=== PATIENT | male | born 1995 | race American Indian/Alaskan Native ===

== ENCOUNTER 2017-08-28 19:38 | Inpatient (IN) | payer SELFPAY ==
[2017-08-28] MEDS ORDERED: D5NS 0.2% 1,000 ML IV SCH (22:00)
[2017-08-28] MEDS ORDERED: TYLENOL ONE (22:01)
[2017-08-28] MEDS ORDERED: TYLENOL PO ONE (22:02)
[2017-08-28 22:48] LABS: Basophils # (Auto) 0.1 K/mm3 (0.0-0.1); Basophils % (Auto) 0.9 % (0.0-1.8); Eosinophils # (Auto) 0.1 K/mm3 (0.0-0.4); Eosinophils % (Auto) 0.6 % (0.0-4.3); Hematocrit 36.1 % (35.5-45.6); Hemoglobin 12.4 gm/dl (11.8-15.2); Lymphocytes # (Auto) 3.2 K/mm3 (1.2-5.4); Mean Corpuscular HGB Conc 34 % (32-34); Mean Corpuscular Hemoglobin 26 pg (28-32); Mean Corpuscular Volume 76 fl (84-94); Monocytes # (Auto) 0.9 K/mm3 (0.0-0.8); Monocytes % (Auto) 8.8 % (0.0-7.3); Red Blood Count 4.73 M/mm3 (3.65-5.03); Red Cell Distribution Width 17.7 % (13.2-15.2)
[2017-08-28 22:53] LABS: Platelet Count 258 K/mm3 (140-440)
[2017-08-28] MEDS ORDERED: TORADOL IV ONE (23:28)
[2017-08-28] MEDS ORDERED: ZOFRAN IV ONE (23:28)
[2017-08-28] MEDS ORDERED: DILAUDID IV ONE (23:28)
--- NOTE | 2017-08-28 23:31 | Emergency Department Report ---
ED Chest Pain HPI - General Chief Complaint: Sickle Cell Crisis Stated Complaint: SICKLE CELL CRISIS Time Seen by Provider: 08/28/17 23:20 Source: patient Mode of arrival: Ambulatory Limitations: No Limitations - History of Present Illness Initial Comments: 22-year-old gentleman presents emergency room with complaints of sickle cell crisis. Patient states he is having bilateral chest pain bilateral lower rib pain and back pain. Patient states this is common site for his sickle cell crisis pain. Patient states the pain is a 10 out of 10. Patient denies fever and chills. Patient denies nausea and vomiting. Patient denies abdominal pain. Patient denies limb pain. Patient states the pain is better with rest. Patient states the pain is worse with movement and walking and taking a deep breath. MD Complaint: chest pain -: Sudden Onset: during rest Pain Location: left chest, right chest Pain Radiation: back Severity: severe Severity scale (0 -10): 10 Quality: sharp Consistency: constant Improves With: rest, remaining still Worsens With: exertion, inspiration, movement Treatments Prior to Arrival: none Aspirin use within the Past 7 Days: (0) No - Related Data On Oral Contraceptives: No Allergies Allergy/AdvReac Type Severity Reaction Status Date / Time amoxicillin [From Augmentin] Allergy Hives Verified 08/28/17 21:55 cefprozil [From Cefzil] Allergy Hives Verified 08/28/17 21:55 clavulanic acid Allergy Hives Verified 08/28/17 21:55 [From Augmentin] promethazine [From Phenergan] Allergy Hives Verified 08/28/17 21:55 Heart Score - HEART Score History: Slightly suspicious EKG: Normal Age: < 45 Risk factors: No known risk factors Troponin: < normal limit HEART Score: 0 ED Review of Systems ROS: Stated complaint: SICKLE CELL CRISIS Other details as noted in HPI Constitutional: denies: chills, fever Eyes: denies: eye pain, eye discharge, vision change ENT: denies: ear pain, throat pain Respiratory: denies: cough, shortness of breath, wheezing Cardiovascular: chest pain. denies: palpitations Endocrine: no symptoms reported Gastrointestinal: denies: abdominal pain, nausea, diarrhea Genitourinary: denies: urgency, dysuria Musculoskeletal: back pain. denies: joint swelling, arthralgia Skin: denies: rash, lesions Neurological: denies: headache, weakness, paresthesias Psychiatric: denies: anxiety, depression Hematological/Lymphatic: denies: easy bleeding, easy bruising ED Past Medical Hx - Past Medical History Previous Medical History?: Yes Hx Sickle Cell Disease: Yes - Surgical History Past Surgical History?: Yes Additional Surgical History: RT Knee, Broncossopy - Family History Family history: no significant - Social History Smoking Status: Never Smoker Substance Use Type: None ED Physical Exam - General Limitations: No Limitations General appearance: alert, in no apparent distress - Head Head exam: Present: atraumatic, normocephalic - Eye Eye exam: Present: normal appearance - ENT ENT exam: Present: mucous membranes dry - Neck Neck exam: Present: normal inspection - Respiratory Respiratory exam: Present: normal lung sounds bilaterally, chest wall tenderness. Absent: respiratory distress - Cardiovascular Cardiovascular Exam: Present: regular rate, normal rhythm. Absent: systolic murmur, diastolic murmur, rubs, gallop - GI/Abdominal GI/Abdominal exam: Present: soft, normal bowel sounds - Rectal Rectal exam: Present: deferred - Extremities Exam Extremities exam: Present: normal inspection - Back Exam Back exam: Present: normal inspection - Neurological Exam Neurological exam: Present: alert, oriented X3 - Psychiatric Psychiatric exam: Present: normal affect, normal mood - Skin Skin exam: Present: warm, dry, intact, normal color. Absent: rash ED Course Vital Signs 08/28/17 08/28/17 08/28/17 21:55 22:04 23:50 Temperature 98.6 F 97.6 F Pulse Rate 69 72 Respiratory 16 16 Rate Blood Pressure 111/59 105/79 Blood Pressure [Right] O2 Sat by Pulse 98 95 Oximetry 08/29/17 08/29/17 03:42 04:23 Temperature 98.3 F 98.3 F Pulse Rate 69 76 Respiratory 20 20 Rate Blood Pressure 107/61 Blood Pressure 107/73 [Right] O2 Sat by Pulse 97 100 Oximetry - Reevaluation(s) Reevaluation #1: Pain has improved, but has required multiple doses of medications and fluid. Will discuss case with hospitalist for admission. Dr. Jang agreed to admit 08/29/17 01:54 ANAND score - Anand Score Age > 65: (0) No Aspirin use within the Past 7 Days: (0) No 3 or more CAD Risk Factors: (0) No 2 or more Angina events in past 24 hrs: (0) No Known CAD with more than 50% Stenosis: (0) No Elevated Cardiac Markers: (0) No ST Deviation Greater than 0.5mm: (0) No ANAND Score: 0 ED Medical Decision Making - Lab Data Result diagrams: 08/28/17 22:07 08/29/17 00:13 - EKG Data -: EKG Interpreted by Me EKG shows normal: sinus rhythm, axis, intervals, QRS complexes, ST-T waves Rate: normal - EKG Data Interpretation: no acute changes, normal EKG - Radiology Data Radiology results: report reviewed - Medical Decision Making Patient is 22-year-old came in with chest pain and rib pain and back pain. And in sickle cell crisis. Will consult Dr. Jang, hospitalist for admission - Differential Diagnosis ssc, cp. Critical care attestation.: If time is entered above; I have spent that time in minutes in the direct care of this critically ill patient, excluding procedure time. ED Disposition Clinical Impression: Chest pain, Sickle cell crisis Disposition: 09 OP ADMIT IP TO THIS HOSP Is pt being admited?: Yes Does the pt Need Aspirin: No Condition: Serious Time of Disposition: 01:58
[2017-08-28] MEDS ORDERED: DILAUDID ONE (23:40)
[2017-08-28] MEDS ORDERED: NACL 0.9% 1000 ML 1,000 ML IV ONE (23:40)
--- NOTE | 2017-08-29 00:32 | XRay Report ---
FINAL REPORT PROCEDURE: XR CHEST 1V AP TECHNIQUE: Chest radiograph anteroposterior view. CPT 62709 HISTORY: cp COMPARISON: No prior studies are available for comparison. FINDINGS: Heart: Normal. Mediastinum/Vessels: Normal. Lungs/Pleural space: Mild infiltrate left lower lung. No effusion or pneumothorax. Bony thorax: No acute osseous abnormality. Life support devices: None. IMPRESSION: Mild left lower lung infiltrate.
[2017-08-29 00:49] LABS: Alanine Aminotransferase 11 units/L (7-56); Albumin 4.2 g/dL (3.9-5); BUN/Creatinine Ratio 15; Blood Urea Nitrogen 9 mg/dL (9-20); Calcium 8.5 mg/dL (8.4-10.2); Hemolysis Index 3
[2017-08-29 00:49] LABS: Bilirubin,Urine NEG (Negative); Blood,Urine NEG (Negative); Color,Urine Yellow (Yellow); Nitrite,Urine NEG (Negative); Protein,Urine <15 mg/dL mg/dL (Negative); RBC,Urine < 1.0 /HPF (0.0-6.0); Sperm,Urine 1+ /HPF (NP); Urobilinogen,Urine < 2.0 mg/dL (<2.0); WBC,Urine < 1.0 /HPF (0.0-6.0)
[2017-08-29 00:54] LABS: Creatine Kinase MB < 1.0 ng/mL (0.0-4.0)
[2017-08-29] MEDS ORDERED: DILAUDID IV ONE ×2 (01:16→07:05)
[2017-08-29] MEDS ORDERED: DILAUDID ONE ×4 (01:17→06:48)
[2017-08-29] MEDS ORDERED: NACL 0.9% 1000 ML 1,000 ML ONE (03:36)
[2017-08-29] MEDS ORDERED: DULCOLAX PR PRN (05:16)
[2017-08-29] MEDS ORDERED: MILK OF MAGNESIA PO PRN (05:16)
[2017-08-29] MEDS ORDERED: ZOFRAN IV PRN (05:16)
[2017-08-29] MEDS ORDERED: DILAUDID IV PRN (05:16)
--- NOTE | 2017-08-29 05:19 | History and Physical Report ---
History of Present Illness Date of examination: 08/29/17 History of present illness: 21-year-old man with a history of sickle cell comes emergency room complaining of bilateral rib pain and back pain which she describes as sharp, constant, intensity 9/10, no radiation, started yesterday. He stated that this is typical of his sickle cell pain. Denies cough, fever, chills, shortness of breath Review Of Systems: Constitutional: no weight loss Ears, eyes, nose, mouth and throat: no nasal congestion, no nasal discharge, no sinus pressure, blurry vision, diplopia Neck: No neck pain or rigidity. Cardiovascular: No palpitations Respiratory: No shortness of breath, cough Gastrointestinal: No abdominal pain, hematochezia Genitourinary : no dysuria, frequency , hematuria Musculoskeletal: no muscle ache Integumentary: no rash, no pruritis Neurological: no parathesias, focal weakness Endocrine: no cold or heat intolerance, no polyuria or polydipsia Hematologic/Lymphatic: no easy bruising, no easy bleeding, no gland swelling Allergic/Immunologic: no urticaria, no angioedema PAST MEDICAL HISTORY: Sickle cell PAST SURGICAL HISTORY: Knee surgery SOCIAL HISTORY: Denies alcohol, tobacco, drugs FAMILY HISTORY: Sickle cell Medications and Allergies Allergies Allergy/AdvReac Type Severity Reaction Status Date / Time amoxicillin [From Augmentin] Allergy Hives Verified 08/28/17 21:55 cefprozil [From Cefzil] Allergy Hives Verified 08/28/17 21:55 clavulanic acid Allergy Hives Verified 08/28/17 21:55 [From Augmentin] promethazine [From Phenergan] Allergy Hives Verified 08/28/17 21:55 Exam - Physical Exam Narrative exam: Gen. appearance: Patient lying in bed, no apparent distress HEENT: Normocephalic, atraumatic, pupils equally round and reactive to light, extraocular movement intact, and no sclericterus,. No JVD or thyromegaly or nodule,neck supple, no carotid bruit ,mucous membranes moist, no exudate or erythema Heart: S1, S2, regular rate and rhythm Lungs: Clear to auscultation bilaterally, breathing comfortable Abdomen: Positive bowel sounds, nontender, nondistended, no organomegaly Extremity: No edema, cyanosis, clubbing Skin: No rash, nodules, warm, dry Neuro: Oriented 3, cranial nerves II-12 intact, speech is fluent, motor and sensory intact - Constitutional Vitals: Temp Pulse Resp BP Pulse Ox 98.3 F 76 20 107/73 100 08/29/17 04:23 08/29/17 04:23 08/29/17 04:23 08/29/17 04:23 08/29/17 04:23 Results - Labs CBC & Chem 7: 08/28/17 22:07 08/29/17 00:13 Labs: Abnormal lab results 08/28/17 08/29/17 Range/Units 22:07 00:13 MCV 76 L (84-94) fl MCH 26 L (28-32) pg RDW 17.7 H (13.2-15.2) % [place] % (Auto) 8.8 H (0.0-7.3) % [place] # 0.9 H (0.0-0.8) K/mm3 Sodium 135 L (137-145) mmol/L Potassium 3.4 L (3.6-5.0) mmol/L Chloride 97.3 L (98-107) mmol/L Creatinine 0.6 L (0.8-1.5) mg/dL Glucose 148 H (75-100) mg/dL - Imaging and Cardiology EKG: image reviewed Chest x-ray: image reviewed Assessment and Plan Assessment Sickle cell crisis Plan Start IV fluids, IV narcotics Check was read as pneumonia however very the patient is asymptomatic Hold antibiotics for now, add lateral view to cxr check d-dimer, dvt prophalaxis
[2017-08-29] MEDS ORDERED: D5/0.45NS 1,000 ML IV SCH (06:00)
--- NOTE | 2017-08-29 06:22 | XRay Report ---
FINAL REPORT PROCEDURE: XR CHEST ROUTINE 2V TECHNIQUE: Chest radiograph anteroposterior view. CPT 89073 HISTORY: possible pna, pt asx COMPARISON: 08/28/2017 FINDINGS: Heart: Normal. Mediastinum/Vessels: Normal. Lungs/Pleural space: Left lower lung infiltrate has not changed. No effusion or pneumothorax. Bony thorax: No acute osseous abnormality. Life support devices: None. IMPRESSION: No significant change in a left lower lung infiltrate..
[2017-08-29] MEDS: OxyCONTIN PO SCH ×3 (06:45→21:37)
[2017-08-29] MEDS ORDERED: K-DUR PO ONE (06:55)
[2017-08-29] MEDS: DILAUDID IV PRN ×7 (09:23→21:36)
[2017-08-29] MEDS: THERAGRAN Tab PO SCH (09:47)
[2017-08-29] MEDS: FOLVITE PO SCH (09:47)
[2017-08-29] MEDS: LOVENOX SUB-Q SCH (09:48)
--- NOTE | 2017-08-29 15:19 | Progress Note ---
Assessment and Plan Assessment and plan: Patient is a 22-year-old man with history of sickle cell disease who presents with hip, back, chest pains as a typical sickle cell pain crisis. pCXR reported as mild left lower infiltrate and repeat CXR 2v reported as no significant change in left lower lung infiltrate. (I don't why cxr was repeated) -Acute sickle cell vaso-occlusive crisis: Treatment with IV fluids, pain control -Left lower lobe infiltrates, question acute chest syndrome vs pneumonia: Consulted hematology/oncology and called Dr. Bravo for stat consult, spoke with J Carlos, answering service. Await call back -LLL pneumonia: use IV Levaquin -Hypokalemia: Replace and recheck in a.m. -Hyponatremia, mild: repeat in am -Hyperglycemia, mild, ?stress induced: check a1c -DVT prophylaxis: sq lovenox CCT 35 minutes History Interval history: Patient was seen and examined. Follow-up on current diagnosis of back pain. Overnight uneventful. Patient denies any shortness breath, nausea/vomiting or severe headaches. Imaging, nursing note, chart, labs and old chart reviewed. Discussed with patient. He denies any coughing. Patient recently moved here and has not established physicians. Hospitalist Physical - Physical exam Narrative exam: GEN: WDWN, NAD, AWAKE, ALERT, ORIENTATED 3 HEENT: NCAT, EOMI, PERRL, OP Clear NECK: supple, no adenopathy, no thyromegaly, no JVD CVS/HEART: RRR, NORMAL S1S2, pulses present bilaterally CHEST/LUNGS: CTA B, Symmetrical chest expansion, good air entry bilaterally GI/Abdomen: soft, NTND, good bowel sounds, no guarding or rebound /Bladder: no suprapubic tenderness, no CVA or paraspinal tenderness EXT/Skin: no c/c/e, no obvious rash MSK: FROM x 4 Neuro: CN 2-12 grossly intact, no new focal deficits Psych: calm - Constitutional Vitals: Temp Pulse Resp BP Pulse Ox 98.1 F 59 L 22 124/81 99 08/29/17 09:47 08/29/17 09:47 08/29/17 09:47 08/29/17 09:47 08/29/17 09:47 Results - Labs CBC & Chem 7: 08/28/17 22:07 08/29/17 00:13 Labs: Laboratory Last Values WBC 9.7 K/mm3 (4.5-11.0) 08/28/17 22:07 RBC 4.73 M/mm3 (3.65-5.03) 08/28/17 22:07 Hgb 12.4 gm/dl (11.8-15.2) 08/28/17 22:07 Hct 36.1 % (35.5-45.6) 08/28/17 22:07 MCV 76 fl (84-94) L 08/28/17 22:07 MCH 26 pg (28-32) L 08/28/17 22:07 MCHC 34 % (32-34) 08/28/17 22:07 RDW 17.7 % (13.2-15.2) H 08/28/17 22:07 Plt Count 258 K/mm3 (140-440) 08/28/17 22:07 Lymph % (Auto) 33.0 % (13.4-35.0) 08/28/17 22:07 [place] % (Auto) 8.8 % (0.0-7.3) H 08/28/17 22:07 Eos % (Auto) 0.6 % (0.0-4.3) 08/28/17 22:07 Baso % (Auto) 0.9 % (0.0-1.8) 08/28/17 22:07 Lymph # 3.2 K/mm3 (1.2-5.4) 08/28/17 22:07 [place] # 0.9 K/mm3 (0.0-0.8) H 08/28/17 22:07 Eos # 0.1 K/mm3 (0.0-0.4) 08/28/17 22:07 Baso # 0.1 K/mm3 (0.0-0.1) 08/28/17 22:07 Seg Neutrophils % 56.7 % (40.0-70.0) 08/28/17 22:07 Seg Neutrophils # 5.5 K/mm3 (1.8-7.7) 08/28/17 22:07 Percent Retic 2.39 % (0.78-2.58) 08/29/17 00:13 D-Dimer 255.90 ng/mlDDU (0-234) H 08/29/17 05:29 Sodium 135 mmol/L (137-145) L 08/29/17 00:13 Potassium 3.4 mmol/L (3.6-5.0) L 08/29/17 00:13 Chloride 97.3 mmol/L (98-107) L 08/29/17 00:13 Carbon Dioxide 25 mmol/L (22-30) 08/29/17 00:13 Anion Gap 16 mmol/L 08/29/17 00:13 BUN 9 mg/dL (9-20) 08/29/17 00:13 Creatinine 0.6 mg/dL (0.8-1.5) L 08/29/17 00:13 Estimated GFR > 60 ml/min 08/29/17 00:13 BUN/Creatinine Ratio 15 % 08/29/17 00:13 Glucose 148 mg/dL (75-100) H 08/29/17 00:13 Calcium 8.5 mg/dL (8.4-10.2) 08/29/17 00:13 Total Bilirubin 0.80 mg/dL (0.1-1.2) 08/29/17 00:13 AST 15 units/L (5-40) 08/29/17 00:13 ALT 11 units/L (7-56) 08/29/17 00:13 Alkaline Phosphatase 79 units/L (35-129) 08/29/17 00:13 Total Creatine Kinase 66 units/L (55-170) 08/29/17 00:13 CK-MB (CK-2) < 1.0 ng/mL (0.0-4.0) 08/29/17 00:13 CK-MB (CK-2) Rel Index 1.5 (0-4) 08/29/17 00:13 Troponin T < 0.010 ng/mL (0.00-0.029) 08/29/17 00:13 Total Protein 6.6 g/dL (6.3-8.2) 08/29/17 00:13 Albumin 4.2 g/dL (3.9-5) 08/29/17 00:13 Albumin/Globulin Ratio 1.8 % 08/29/17 00:13 Urine Color Yellow (Yellow) 08/28/17 Unknown Urine Turbidity Clear (Clear) 08/28/17 Unknown Urine pH 7.0 (5.0-7.0) 08/28/17 Unknown Ur Specific [place] 1.013 (1.003-1.030) 08/28/17 Unknown Urine Protein <15 mg/dl mg/dL (Negative) 08/28/17 Unknown Urine Glucose (UA) Neg mg/dL (Negative) 08/28/17 Unknown Urine Ketones Neg mg/dL (Negative) 08/28/17 Unknown Urine Blood Neg (Negative) 08/28/17 Unknown Urine Nitrite Neg (Negative) 08/28/17 Unknown Urine Bilirubin Neg (Negative) 08/28/17 Unknown Urine Urobilinogen < 2.0 mg/dL (<2.0) 08/28/17 Unknown Ur Leukocyte Esterase Neg (Negative) 08/28/17 Unknown Urine WBC (Auto) < 1.0 /HPF (0.0-6.0) 08/28/17 Unknown Urine RBC (Auto) < 1.0 /HPF (0.0-6.0) 08/28/17 Unknown Urine Sperm 1+ /HPF (WORKERS' COMPENSATION MAGISTRATE) 08/28/17 Unknown
[2017-08-29] MEDS: LEVAQUIN 750MG/150ML 750 MG/150 ML BAG IV SCH (16:52)
[2017-08-29] MEDS: D5/0.45NS 1,000 ML IV SCH (16:53)
[2017-08-29] MEDS: BENADRYL IV PRN (18:12)
[2017-08-29 19:23] LABS: Bilirubin,Direct < 0.2 mg/dL (0-0.2)
[2017-08-29] MEDS: SENOKOT PO SCH (21:36)
--- NOTE | 2017-08-29 22:05 | Hem/Onc Consultation ---
History of Present Illness - Reason for Consult Consult date: 08/29/17 - History of Present Illness 22 year old gentleman. No records to review. 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 States his body pain is typical during a crisis. No fevers. No stroke like symptoms. Past History Past Medical History: other (HbSC disease) Medications and Allergies Allergies Allergy/AdvReac Type Severity Reaction Status Date / Time amoxicillin [From Augmentin] Allergy Hives Verified 08/28/17 21:55 cefprozil [From Cefzil] Allergy Hives Verified 08/28/17 21:55 clavulanic acid Allergy Hives Verified 08/28/17 21:55 [From Augmentin] promethazine [From Phenergan] Allergy Hives Verified 08/28/17 21:55 Home Medications Medication Instructions Recorded Confirmed Last Taken Type Folic Acid [Folvite] 1 mg PO QDAY 08/29/17 08/29/17 Unknown History Hydroxyurea [Hydrea] 500 mg PO 08/29/17 Unknown History Active Meds: Active Medications Bisacodyl (Dulcolax) 10 mg IN QDAY PRN PRN Reason: Constipation unrelieved by MOM Diphenhydramine HCl (Benadryl) 25 mg IV Q6H PRN PRN Reason: Itching Last Admin: 08/29/17 18:12 Dose: 25 mg Enoxaparin Sodium (Lovenox) 40 mg SUB-Q QDAY [facility] Last Admin: 08/29/17 09:48 Dose: Not Given Folic Acid (Folvite) 1 mg PO QDAY [facility] Last Admin: 08/29/17 09:47 Dose: 1 mg Hydromorphone HCl (Dilaudid) 2 mg IV Q2H PRN PRN Reason: Pain , Severe (7-10) Stop: 08/30/17 09:29 Last Admin: 08/29/17 21:36 Dose: 2 mg Dextrose/Sodium Chloride (D5/0.45ns) 1,000 mls @ 125 mls/hr IV DIRECT GREG Last Admin: 08/29/17 16:53 Dose: 125 mls/hr Levofloxacin/Dextrose (Levaquin 750mg/150ml) 750 mg in 150 mls @ 100 mls/hr IV Q24HR GREG PRN Reason: Protocol Last Admin: 08/29/17 16:52 Dose: 100 mls/hr Magnesium Hydroxide (Milk Of Magnesia) 30 ml PO Q4H PRN PRN Reason: Constipation Multivitamins (Theragran Tab) 1 each PO QDAY [facility] Last Admin: 08/29/17 09:47 Dose: 1 each Ondansetron HCl (Zofran) 4 mg IV Q8H PRN PRN Reason: Nausea And Vomiting Oxycodone HCl (Oxycontin) 20 mg PO Q8HR [facility] Last Admin: 08/29/17 21:37 Dose: 20 mg Senna (Senokot) 17.2 mg PO QHS [facility] Last Admin: 08/29/17 21:36 Dose: 17.2 mg Review of Systems All systems: negative (sickle cell pain) Exam - Constitutional Vitals: Last Vital Signs Temp 98.1 F 08/29/17 15:25 Pulse 70 08/29/17 15:25 Resp 18 08/29/17 21:37 BP 117/76 08/29/17 15:25 Pulse Ox 100 08/29/17 19:51 Pain Intensity (0-10): 9/10 General appearance: well-nourished - EENT Eyes: PERRL ENT: hearing intact Lymph node exam: negative cervical - Neck Neck: supple - Respiratory Respiratory effort: Positive: normal Respiratory: bilateral: CTA - Cardiovascular Rhythm: irregularly irregular Extremities: no ischemia, pulses intact - Gastrointestinal General gastrointestinal: Present: soft Rectal Exam: deferred - Genitourinary Male genitourinary: Present: normal - Integumentary Integumentary: clear, warm - Musculoskeletal Musculoskeletal: strength equal bilaterally - Neurologic Neurologic: CNII-XII intact - Psychiatric Psychiatric: appropriate mood/affect Results - Labs lab Results: Laboratory Results - last 24 hr 08/28/17 08/28/17 08/29/17 22:07 Unknown 00:13 WBC 9.7 RBC 4.73 Hgb 12.4 Hct 36.1 MCV 76 L MCH 26 L MCHC 34 RDW 17.7 H Plt Count 258 Lymph % (Auto) 33.0 [place] % (Auto) 8.8 H Eos % (Auto) 0.6 Baso % (Auto) 0.9 Lymph # 3.2 [place] # 0.9 H Eos # 0.1 Baso # 0.1 Seg Neutrophils % 56.7 Seg Neutrophils # 5.5 Percent Retic 2.56 2.39 D-Dimer Sodium Potassium Chloride Carbon Dioxide Anion Gap BUN Creatinine Estimated GFR BUN/Creatinine Ratio Glucose Calcium Total Bilirubin Direct Bilirubin Indirect Bilirubin AST ALT Alkaline Phosphatase Lactate Dehydrogenase Total Creatine Kinase CK-MB (CK-2) CK-MB (CK-2) Rel Index Troponin T Total Protein Albumin Albumin/Globulin Ratio Urine Color Yellow Urine Turbidity Clear Urine pH 7.0 Ur Specific [place] 1.013 Urine Protein <15 mg/dl Urine Glucose (UA) Neg Urine Ketones Neg Urine Blood Neg Urine Nitrite Neg Urine Bilirubin Neg Urine Urobilinogen < 2.0 Ur Leukocyte Esterase Neg Urine WBC (Auto) < 1.0 Urine RBC (Auto) < 1.0 Urine Sperm 1+ 08/29/17 08/29/17 08/29/17 00:13 00:13 05:29 WBC RBC Hgb Hct MCV MCH MCHC RDW Plt Count Lymph % (Auto) [place] % (Auto) Eos % (Auto) Baso % (Auto) Lymph # [place] # Eos # Baso # Seg Neutrophils % Seg Neutrophils # Percent Retic D-Dimer 255.90 H Sodium 135 L Potassium 3.4 L Chloride 97.3 L Carbon Dioxide 25 Anion Gap 16 BUN 9 Creatinine 0.6 L Estimated GFR > 60 BUN/Creatinine Ratio 15 Glucose 148 H Calcium 8.5 Total Bilirubin 0.80 Direct Bilirubin Indirect Bilirubin AST 15 ALT 11 Alkaline Phosphatase 79 Lactate Dehydrogenase Total Creatine Kinase 66 CK-MB (CK-2) < 1.0 CK-MB (CK-2) Rel Index 1.5 Troponin T < 0.010 Total Protein 6.6 Albumin 4.2 Albumin/Globulin Ratio 1.8 Urine Color Urine Turbidity Urine pH Ur Specific [place] Urine Protein Urine Glucose (UA) Urine Ketones Urine Blood Urine Nitrite Urine Bilirubin Urine Urobilinogen Ur Leukocyte Esterase Urine WBC (Auto) Urine RBC (Auto) Urine Sperm 08/29/17 18:00 WBC RBC Hgb Hct MCV MCH MCHC RDW Plt Count Lymph % (Auto) [place] % (Auto) Eos % (Auto) Baso % (Auto) Lymph # [place] # Eos # Baso # Seg Neutrophils % Seg Neutrophils # Percent Retic D-Dimer Sodium Potassium Chloride Carbon Dioxide Anion Gap BUN Creatinine Estimated GFR BUN/Creatinine Ratio Glucose Calcium Total Bilirubin 0.90 Direct Bilirubin < 0.2 Indirect Bilirubin 0.7 AST ALT Alkaline Phosphatase Lactate Dehydrogenase 180 Total Creatine Kinase CK-MB (CK-2) CK-MB (CK-2) Rel Index Troponin T Total Protein Albumin Albumin/Globulin Ratio Urine Color Urine Turbidity Urine pH Ur Specific [place] Urine Protein Urine Glucose (UA) Urine Ketones Urine Blood Urine Nitrite Urine Bilirubin Urine Urobilinogen Ur Leukocyte Esterase Urine WBC (Auto) Urine RBC (Auto) Urine Sperm Assessment and Plan - Patient Problems (1) Sickle cell crisis Current Visit: Yes Status: Acute Plan to address problem: He complains of pain. Added and reviewed his hemolysis labs. His Hb is normal, normal bilirubin, normal LDH. Unlikely to be in severe hemolysis. Review daily CBC CMP direct bilirubin, LDH. Pain control. IV fluids and antibiotics. Will order Hb electrophoresis. Needs outpatient follow up. Stressed with him th eimportance of outpatient follow up. He agrees.
[2017-08-30] MEDS: DILAUDID IV PRN ×9 (00:45→23:29)
[2017-08-30] MEDS: D5/0.45NS 1,000 ML IV SCH ×3 (01:16→19:42)
[2017-08-30] MEDS ORDERED: DILAUDID PCA 6MG/30ML IV SCH (02:00)
[2017-08-30] MEDS: OxyCONTIN PO SCH ×3 (05:45→23:06)
[2017-08-30 06:35] LABS: Basophils % (Auto) 0.8 % (0.0-1.8); Eosinophils # (Auto) 0.1 K/mm3 (0.0-0.4); Eosinophils % (Auto) 1.8 % (0.0-4.3); Hematocrit 32.9 % (35.5-45.6); Hemoglobin 11.6 gm/dl (11.8-15.2); Lymphocytes # (Auto) 2.9 K/mm3 (1.2-5.4); Lymphocytes % (Auto) 45.7 % (13.4-35.0); Mean Corpuscular HGB Conc 35 % (32-34); Mean Corpuscular Hemoglobin 27 pg (28-32); Mean Corpuscular Volume 76 fl (84-94); Monocytes # (Auto) 0.7 K/mm3 (0.0-0.8); Monocytes % (Auto) 10.3 % (0.0-7.3); Platelet Count 250 K/mm3 (140-440); Red Blood Count 4.35 M/mm3 (3.65-5.03); Red Cell Distribution Width 17.5 % (13.2-15.2)
[2017-08-30 06:46] LABS: BUN/Creatinine Ratio 9; Blood Urea Nitrogen 6 mg/dL (9-20); Calcium 8.9 mg/dL (8.4-10.2); Hemolysis Index 15
--- NOTE | 2017-08-30 09:21 | Hem/Onc Progress Note ---
Assessment and Plan Continue the current regimen. Awaiting hemoglobin electrophoresis. Lab seem to be stable. Subjective Date of service: 08/30/17 Interval history: He shouldn't states that he continues to be in pain. The regimen works but he got off the regimen last night Objective - Constitutional Vitals: Last Vital Signs Temp 98.4 F 08/30/17 07:27 Pulse 62 08/30/17 07:27 Resp 20 08/30/17 07:27 BP 112/69 08/30/17 07:27 Pulse Ox 100 08/30/17 07:27 Pain Intensity (0-10): 7/10 General appearance: other (in distress with pain) - Neck Neck: supple - Respiratory Respiratory effort: Positive: normal Respiratory: bilateral: CTA - Cardiovascular Rhythm: regular Extremities: No edema - Gastrointestinal General gastrointestinal: Present: soft - Labs Lab Results: Laboratory Results - last 24 hr 08/29/17 08/30/17 08/30/17 18:00 06:14 06:14 WBC 6.4 RBC 4.35 Hgb 11.6 L Hct 32.9 L MCV 76 L MCH 27 L MCHC 35 H RDW 17.5 H Plt Count 250 Lymph % (Auto) 45.7 H [place] % (Auto) 10.3 H Eos % (Auto) 1.8 Baso % (Auto) 0.8 Lymph # 2.9 [place] # 0.7 Eos # 0.1 Baso # 0.0 Seg Neutrophils % 41.4 Seg Neutrophils # 2.6 Percent Retic 2.19 Sodium 141 Potassium 4.0 Chloride 99.6 Carbon Dioxide 27 Anion Gap 18 BUN 6 L Creatinine 0.7 L Estimated GFR > 60 BUN/Creatinine Ratio 9 Glucose 81 Hemoglobin A1c Calcium 8.9 Total Bilirubin 0.90 Direct Bilirubin < 0.2 Indirect Bilirubin 0.7 Lactate Dehydrogenase 180 193 H 08/30/17 06:14 WBC RBC Hgb Hct MCV MCH MCHC RDW Plt Count Lymph % (Auto) [place] % (Auto) Eos % (Auto) Baso % (Auto) Lymph # [place] # Eos # Baso # Seg Neutrophils % Seg Neutrophils # Percent Retic Sodium Potassium Chloride Carbon Dioxide Anion Gap BUN Creatinine Estimated GFR BUN/Creatinine Ratio Glucose Hemoglobin A1c < 4.2 Calcium Total Bilirubin Direct Bilirubin Indirect Bilirubin Lactate Dehydrogenase
[2017-08-30] MEDS ORDERED: DILAUDID IV PRN ×4 (11:29→19:52)
[2017-08-30] MEDS: LEVAQUIN 750MG/150ML 750 MG/150 ML BAG IV SCH (11:56)
[2017-08-30] MEDS: FOLVITE PO SCH (11:57)
[2017-08-30] MEDS: THERAGRAN Tab PO SCH (11:57)
[2017-08-30] MEDS: BENADRYL IV PRN ×2 (12:06→19:47)
[2017-08-30] MEDS: LOVENOX SUB-Q SCH (12:25)
--- NOTE | 2017-08-30 15:02 | Progress Note ---
Assessment and Plan Assessment and plan: Patient is a 22-year-old man with history of sickle cell disease who presents with hip, back, chest pains as a typical sickle cell pain crisis. pCXR reported as mild left lower infiltrate and repeat CXR 2v reported as no significant change in left lower lung infiltrate. (I don't why cxr was repeated) -Acute sickle cell vaso-occlusive crisis: Treatment with IV fluids, pain control -Left lower lobe infiltrates, question acute chest syndrome vs pneumonia: Hematology/oncology is following -LLL pneumonia: use IV Levaquin -Hypokalemia: Replace and recheck in a.m. -Hyponatremia, mild: repeat in am -Hyperglycemia, mild, ?stress induced: check a1c -DVT prophylaxis: sq lovenox restarted iv dilaudid. History Interval history: Patient was seen and examined. Follow-up on current diagnosis of back pain. Overnight uneventful. Patient denies any shortness breath, nausea/vomiting or severe headaches. Imaging, nursing note, chart, labs and old chart reviewed. Discussed with patient. He denies any coughing. Patient recently moved here from [place]. Hospitalist Physical - Physical exam Narrative exam: GEN: WDWN, NAD, AWAKE, ALERT, ORIENTATED 3 HEENT: NCAT, EOMI, PERRL, OP Clear NECK: supple, no adenopathy, no thyromegaly, no JVD CVS/HEART: RRR, NORMAL S1S2, pulses present bilaterally CHEST/LUNGS: CTA B, Symmetrical chest expansion, good air entry bilaterally GI/Abdomen: soft, NTND, good bowel sounds, no guarding or rebound /Bladder: no suprapubic tenderness, no CVA or paraspinal tenderness EXT/Skin: no c/c/e, no obvious rash MSK: FROM x 4 Neuro: CN 2-12 grossly intact, no new focal deficits Psych: calm - Constitutional Vitals: Temp Pulse Resp BP Pulse Ox 98.4 F 62 20 112/69 100 08/30/17 07:27 08/30/17 07:27 08/30/17 07:27 08/30/17 07:27 08/30/17 09:25 Results - Labs CBC & Chem 7: 08/30/17 06:14 08/30/17 06:14 Labs: Laboratory Last Values WBC 6.4 K/mm3 (4.5-11.0) 08/30/17 06:14 RBC 4.35 M/mm3 (3.65-5.03) 08/30/17 06:14 Hgb 11.6 gm/dl (11.8-15.2) L 08/30/17 06:14 Hct 32.9 % (35.5-45.6) L 08/30/17 06:14 MCV 76 fl (84-94) L 08/30/17 06:14 MCH 27 pg (28-32) L 08/30/17 06:14 MCHC 35 % (32-34) H 08/30/17 06:14 RDW 17.5 % (13.2-15.2) H 08/30/17 06:14 Plt Count 250 K/mm3 (140-440) 08/30/17 06:14 Lymph % (Auto) 45.7 % (13.4-35.0) H 08/30/17 06:14 [place] % (Auto) 10.3 % (0.0-7.3) H 08/30/17 06:14 Eos % (Auto) 1.8 % (0.0-4.3) 08/30/17 06:14 Baso % (Auto) 0.8 % (0.0-1.8) 08/30/17 06:14 Lymph # 2.9 K/mm3 (1.2-5.4) 08/30/17 06:14 [place] # 0.7 K/mm3 (0.0-0.8) 08/30/17 06:14 Eos # 0.1 K/mm3 (0.0-0.4) 08/30/17 06:14 Baso # 0.0 K/mm3 (0.0-0.1) 08/30/17 06:14 Seg Neutrophils % 41.4 % (40.0-70.0) 08/30/17 06:14 Seg Neutrophils # 2.6 K/mm3 (1.8-7.7) 08/30/17 06:14 Percent Retic 2.19 % (0.78-2.58) 08/30/17 06:14 D-Dimer 255.90 ng/mlDDU (0-234) H 08/29/17 05:29 Sodium 141 mmol/L (137-145) 08/30/17 06:14 Potassium 4.0 mmol/L (3.6-5.0) 08/30/17 06:14 Chloride 99.6 mmol/L (98-107) 08/30/17 06:14 Carbon Dioxide 27 mmol/L (22-30) 08/30/17 06:14 Anion Gap 18 mmol/L 08/30/17 06:14 BUN 6 mg/dL (9-20) L 08/30/17 06:14 Creatinine 0.7 mg/dL (0.8-1.5) L 08/30/17 06:14 Estimated GFR > 60 ml/min 08/30/17 06:14 BUN/Creatinine Ratio 9 % 08/30/17 06:14 Glucose 81 mg/dL (75-100) 08/30/17 06:14 Hemoglobin A1c < 4.2 % (4-6) 08/30/17 06:14 Calcium 8.9 mg/dL (8.4-10.2) 08/30/17 06:14 Total Bilirubin 0.90 mg/dL (0.1-1.2) 08/29/17 18:00 Direct Bilirubin < 0.2 mg/dL (0-0.2) 08/29/17 18:00 Indirect Bilirubin 0.7 mg/dL 08/29/17 18:00 AST 15 units/L (5-40) 08/29/17 00:13 ALT 11 units/L (7-56) 08/29/17 00:13 Alkaline Phosphatase 79 units/L (35-129) 08/29/17 00:13 Lactate Dehydrogenase 193 units/L (91-180) H 08/30/17 06:14 Total Creatine Kinase 66 units/L (55-170) 08/29/17 00:13 CK-MB (CK-2) < 1.0 ng/mL (0.0-4.0) 08/29/17 00:13 CK-MB (CK-2) Rel Index 1.5 (0-4) 08/29/17 00:13 Troponin T < 0.010 ng/mL (0.00-0.029) 08/29/17 00:13 Total Protein 6.6 g/dL (6.3-8.2) 08/29/17 00:13 Albumin 4.2 g/dL (3.9-5) 08/29/17 00:13 Albumin/Globulin Ratio 1.8 % 08/29/17 00:13 Urine Color Yellow (Yellow) 08/28/17 Unknown Urine Turbidity Clear (Clear) 08/28/17 Unknown Urine pH 7.0 (5.0-7.0) 08/28/17 Unknown Ur Specific [place] 1.013 (1.003-1.030) 08/28/17 Unknown Urine Protein <15 mg/dl mg/dL (Negative) 08/28/17 Unknown Urine Glucose (UA) Neg mg/dL (Negative) 08/28/17 Unknown Urine Ketones Neg mg/dL (Negative) 08/28/17 Unknown Urine Blood Neg (Negative) 08/28/17 Unknown Urine Nitrite Neg (Negative) 08/28/17 Unknown Urine Bilirubin Neg (Negative) 08/28/17 Unknown Urine Urobilinogen < 2.0 mg/dL (<2.0) 08/28/17 Unknown Ur Leukocyte Esterase Neg (Negative) 08/28/17 Unknown Urine WBC (Auto) < 1.0 /HPF (0.0-6.0) 08/28/17 Unknown Urine RBC (Auto) < 1.0 /HPF (0.0-6.0) 08/28/17 Unknown Urine Sperm 1+ /HPF (WILL CALL ORDER CLERK) 08/28/17 Unknown
[2017-08-30] MEDS: HYDREA PO SCH (18:54)
[2017-08-30] MEDS ORDERED: DILAUDID IM PRN (19:39)
[2017-08-30] MEDS ORDERED: DILAUDID IV ONE (21:00)
[2017-08-30] MEDS: SENOKOT PO SCH (22:35)
[2017-08-31] MEDS: BENADRYL IV PRN ×2 (02:04→07:10)
[2017-08-31] MEDS: DILAUDID IV PRN ×4 (02:05→11:13)
[2017-08-31] MEDS: OxyCONTIN PO SCH (05:08)
[2017-08-31] MEDS: D5/0.45NS 1,000 ML IV SCH (07:02)
[2017-08-31 07:49] VITALS: BP 107/57
[2017-08-31] MEDS ORDERED: LEVAQUIN PO SCH (10:00)
[2017-08-31] MEDS: LOVENOX SUB-Q SCH (10:00)
[2017-08-31] MEDS: HYDREA PO SCH (10:00)
[2017-08-31] MEDS: FOLVITE PO SCH (11:00)
[2017-08-31] MEDS: THERAGRAN Tab PO SCH (11:00)
--- NOTE | 2017-08-31 11:25 | Discharge Summary ---
Providers - Providers Date of Admission: 08/29/17 05:16 Date of discharge: 08/31/17 Attending physician: DONNY MORRIS 08/29/17 16:18 Consult to Physician [CONS] Routine Consulting Provider: RHEA HOYT Reason For Exam: Evaluate for acute chest syndrome, Place consult to:: DR. HOYT Notified:: OFFICE Phone number called:: [phone] Was contact made?: Yes If yes, spoke with:: RAPHAEL Time called:: 16:55 Comment:: BRYSON NOTIFIED Primary care physician: VIDEO EFFECTS EDITOR Hospitalization Condition: Stable Hospital course: Patient is a 22-year-old man with history of sickle cell disease who presents with hip, back, chest pains as a typical sickle cell pain crisis. pCXR reported as mild left lower infiltrate and repeat CXR 2v reported as no significant change in left lower lung infiltrate. (I don't why cxr was repeated) -Acute sickle cell vaso-occlusive crisis: Treatment with IV fluids, pain control -Left lower lobe infiltrates, question acute chest syndrome vs pneumonia: Hematology/oncology is following -LLL pneumonia: use IV Levaquin -Hypokalemia: Replace and recheck in a.m. -Hyponatremia, mild: repeat in am -Hyperglycemia, mild, ?stress induced: check a1c -DVT prophylaxis: sq lovenox (he is refusing) pt wants to go home. he feels better Disposition: DC-01 TO HOME OR SELFCARE Time spent for discharge: 35 min Core Measure Documentation - Palliative Care Palliative Care/ Comfort Measures: Not Applicable - Core Measures Any of the following diagnoses?: none - VTE Discharge Requirements Deep Vein Thrombosis/Pulmonary Embolism Present on Admission: No Has pt received <5 days of overlap therapy or INR<2.0: No Anticoagulant overlap therapy prescribed at discharge: No Contraindication No Overlap Therapy order at DC: Not Indicated Exam - Physical Exam Narrative exam: GEN: WDWN, NAD, AWAKE, ALERT, ORIENTATED 3 HEENT: NCAT, EOMI, PERRL, OP Clear NECK: supple, no adenopathy, no thyromegaly, no JVD CVS/HEART: RRR, NORMAL S1S2, pulses present bilaterally CHEST/LUNGS: CTA B, Symmetrical chest expansion, good air entry bilaterally GI/Abdomen: soft, NTND, good bowel sounds, no guarding or rebound /Bladder: no suprapubic tenderness, no CVA or paraspinal tenderness EXT/Skin: no c/c/e, no obvious rash MSK: FROM x 4 Neuro: CN 2-12 grossly intact, no new focal deficits Psych: calm - Constitutional Vitals: Temp Pulse Resp BP Pulse Ox 97.8 F 66 18 107/57 100 08/31/17 07:33 08/31/17 07:33 08/31/17 07:33 08/31/17 07:33 08/31/17 07:33 Plan Activity: other (no strenous activity) Diet: regular Follow up with: PRIMARY CAREMD [Primary Care Provider] - 7 Days RHEA HOYT MD [Staff Physician] - 7 Days Prescriptions: Sennosides Tab [Senokot] 17.2 mg PO QHS #30 tablet Folic Acid [Folvite] 1 mg PO QDAY #30 tablet Levofloxacin [Levaquin TAB] 750 mg PO Q24HR #4 tablet oxyCODONE ER [OxyCONTIN ER TAB] 20 mg PO Q8HR #20 tablet
== END 2017-08-31 13:00 | disposition home or self-care (01) | DRG 811 ==
LOC: ED 19:38 → 3A 08-29 05:16
PROVIDERS: ADMIT Internal Medicine; ATTEND Internal Medicine
DX: D57.00 Hb-SS disease with crisis, unspecified (principal); J18.1 Lobar pneumonia, unspecified organism; E87.1 Hypo-osmolality and hyponatremia; Z88.8 Allergy status to other drugs, medicaments and biological substances; Z88.1 Allergy status to other antibiotic agents; E87.6 Hypokalemia; R73.9 Hyperglycemia, unspecified
CPT/HCPCS: 36415; 71045; 71046; 80048; 80053; 81001; 82248; 82550; 82553; 83036; 83615; 84484; 85025; 85027; 85045; 85379; 93005; 93010; 96374; 96375; 96376; J1170; J1200; J1650; J1885; J1956; J2405; J7030

== ENCOUNTER 2017-09-25 16:10 | Inpatient (IN) | payer SELFPAY ==
[2017-09-25] MEDS ORDERED: D5NS 0.2% 1,000 ML IV SCH (18:00)
[2017-09-25] MEDS ORDERED: ZOFRAN IV ONE (18:17)
[2017-09-25] MEDS ORDERED: DILAUDID IV ONE ×3 (18:17→19:54)
[2017-09-25] MEDS ORDERED: NACL 0.9% 1000 ML 1,000 ML IV ONE (18:17)
[2017-09-25] MEDS ORDERED: TORADOL IV ONE (18:18)
--- NOTE | 2017-09-25 18:26 | Emergency Department Report ---
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 He has had gradual onset of generalized chest pain for several days. He denies shortness of breath. Denies cough. Denies fever. He denies pain in the extremities. 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 He is in the [place] area visiting his father. He denies injury. Pain is 10 on 10 in severity. He states that he has not had many hospitalizations for sickle cell crisis. However this was "a bad year". 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 - Related Data Previous Rx's Medication Instructions Recorded Last Taken Type Folic Acid [Folvite] 1 mg PO QDAY #30 tablet 08/31/17 Unknown Rx Levofloxacin [Levaquin TAB] 750 mg PO Q24HR #4 tablet 08/31/17 Unknown Rx Oxycodone HCl [Oxycontin] 30 mg PO BID #20 tab 08/31/17 Unknown Rx Oxycodone HCl [Roxicodone] 30 mg PO BID PRN #20 tablet 08/31/17 Unknown Rx Sennosides Tab [Senokot] 17.2 mg PO QHS #30 tablet 08/31/17 Unknown Rx Allergies Allergy/AdvReac Type Severity Reaction Status Date / Time amoxicillin [From Augmentin] Allergy Hives Verified 08/28/17 21:55 cefprozil [From Cefzil] Allergy Hives Verified 08/28/17 21:55 clavulanic acid Allergy Hives Verified 08/28/17 21:55 [From Augmentin] promethazine [From Phenergan] Allergy Hives Verified 08/28/17 21:55 ED Review of Systems ROS: Stated complaint: SICKLE CELL CRISIS Other details as noted in HPI Comment: All other systems reviewed and negative Constitutional: denies: fever, malaise Respiratory: denies: cough Cardiovascular: chest pain ED Past Medical Hx - Past Medical History Previous Medical History?: Yes Hx Sickle Cell Disease: Yes Additional medical history: Pneumonia - Surgical History Past Surgical History?: Yes Additional Surgical History: RT Knee, Broncossopy - Social History Smoking Status: Never Smoker Substance Use Type: Prescribed - Medications Home Medications: Home Medications Medication Instructions Recorded Confirmed Last Taken Type Folic Acid [Folvite] 1 mg PO QDAY #30 tablet 08/31/17 Unknown Rx Levofloxacin [Levaquin TAB] 750 mg PO Q24HR #4 tablet 08/31/17 Unknown Rx Oxycodone HCl [Oxycontin] 30 mg PO BID #20 tab 08/31/17 Unknown Rx Oxycodone HCl [Roxicodone] 30 mg PO BID PRN #20 tablet 08/31/17 Unknown Rx Sennosides Tab [Senokot] 17.2 mg PO QHS #30 tablet 08/31/17 Unknown Rx ED Physical Exam - General Limitations: No Limitations General appearance: alert, in no apparent distress, other (appears in pain rocking [id number]) - Head Head exam: Present: atraumatic, normocephalic - Eye Eye exam: Present: normal appearance - ENT ENT exam: Present: mucous membranes moist - Neck Neck exam: Present: normal inspection - Respiratory Respiratory exam: Present: normal lung sounds bilaterally. Absent: respiratory distress, wheezes, rales, rhonchi - Cardiovascular Cardiovascular Exam: Present: regular rate, normal rhythm, normal heart sounds. Absent: systolic murmur, diastolic murmur, rubs, gallop - GI/Abdominal GI/Abdominal exam: Present: soft, normal bowel sounds. Absent: distended, tenderness, guarding, rebound - Rectal Rectal exam: Present: deferred - Extremities Exam Extremities exam: Present: normal inspection. Absent: full ROM, tenderness - Back Exam Back exam: Present: normal inspection - Neurological Exam Neurological exam: Present: alert, oriented X3 - Psychiatric Psychiatric exam: Present: normal affect, normal mood - Skin Skin exam: Present: warm, dry, intact, normal color. Absent: rash ED Course Vital Signs 09/25/17 09/25/17 09/25/17 17:50 19:28 19:30 Temperature 98.4 F Pulse Rate 79 Respiratory 18 Rate Blood Pressure 131/68 115/73 O2 Sat by Pulse 100 98 98 Oximetry ED Medical Decision Making - Lab Data Result diagrams: 09/25/17 18:01 09/25/17 19:35 - Medical Decision Making Without significant anemia, patient is experiencing sickle cell crisis. He explains that sickle crisis typically in ribs. No indication of PE or acute chest. Admitted to hospitalist service. Critical care attestation.: If time is entered above; I have spent that time in minutes in the direct care of this critically ill patient, excluding procedure time. ED Disposition Clinical Impression: Sickle cell crisis Disposition: OP ADMIT IP TO THIS HOSP Is pt being admited?: Yes Does the pt Need Aspirin: No Condition: Stable Time of Disposition: 21:40
[2017-09-25 18:38] LABS: Basophils # (Auto) 0.1 K/mm3 (0.0-0.1); Basophils % (Auto) 0.4 % (0.0-1.8); Eosinophils # (Auto) 0.1 K/mm3 (0.0-0.4); Eosinophils % (Auto) 0.4 % (0.0-4.3); Hematocrit 36.8 % (35.5-45.6); Hemoglobin 12.6 gm/dl (11.8-15.2); Lymphocytes # (Auto) 2.2 K/mm3 (1.2-5.4); Lymphocytes % (Auto) 14.9 % (13.4-35.0); Mean Corpuscular HGB Conc 34 % (32-34); Mean Corpuscular Hemoglobin 27 pg (28-32); Mean Corpuscular Volume 78 fl (84-94); Monocytes # (Auto) 0.9 K/mm3 (0.0-0.8); Platelet Count 358 K/mm3 (140-440); Red Cell Distribution Width 19.7 % (13.2-15.2)
--- NOTE | 2017-09-25 18:46 | XRay Report ---
FINAL REPORT EXAM: XR CHEST ROUTINE 2V HISTORY: hx of sickle cell and pneumonia, congested cough TECHNIQUE: PA and lateral views of the chest PRIORS: CXR 08/29/2017 FINDINGS: Lines, tubes, and devices: N/A Lungs and pleura: Trachea is normal in position. There are new mild linear markings in the lingula suspicious for atelectasis versus early infiltrate. Cardiomediastinal silhouette: Cardiac and mediastinal silhouettes are unremarkable. Other: Bony structures are intact. IMPRESSION: New linear markings in the lingula suspicious for atelectasis versus early infiltrate.
[2017-09-25 18:52] LABS: Blood Urea Nitrogen 5 mg/dL (9-20)
[2017-09-25 19:49] LABS: BUN/Creatinine Ratio 8; Blood Urea Nitrogen 5 mg/dL (9-20); Calcium 9.7 mg/dL (8.4-10.2); Hemolysis Index 9
--- NOTE | 2017-09-25 19:50 | Cat Scan Report ---
FINAL REPORT EXAM: CT ANGIO CHEST HISTORY: chest pain sickle cell pneumonia TECHNIQUE: Enhanced CT of the chest at 1.25 mm axial intervals following a pulmonary embolism protocol. Coronal and sagittal imaging were also obtained. Coronal MIP projections were obtained. Contrast: Intravenous contrast given PRIORS: CXR 09/25/2017 FINDINGS: There is no evidence for pulmonary embolism in the main pulmonary artery, right and left pulmonary arteries or their major distributions. However, CT does not exclude distal pulmonary emboli. Linear atelectasis in the lingula is present. Otherwise, the lung parenchyma are expanded and clear with no evidence for parenchymal nodules, infiltrates, congestion, or pleural effusion. There is no evidence for mediastinal, hilar, or axillary adenopathy. Residual thymus is present in the anterior mediastinum. Cardiovascular structures are within normal limits. No evidence for ventricular chamber enlargement is seen. Images through the lung bases include the upper abdomen which show no abnormalities of the visualized abdominal viscera. Bony structures demonstrate no focal abnormalities. No evidence for bone infarct is seen. IMPRESSION: No evidence for pulmonary embolism. Linear atelectasis in the lingula is noted
[2017-09-25] MEDS ORDERED: MORPHINE IV ONE (21:41)
[2017-09-25] MEDS ORDERED: DULCOLAX PR PRN (21:54)
[2017-09-25] MEDS ORDERED: MORPHINE IV PRN (21:54)
[2017-09-25] MEDS ORDERED: REGLAN IV PRN (21:54)
[2017-09-25] MEDS ORDERED: ZOFRAN IV PRN (21:54)
[2017-09-25] MEDS ORDERED: MILK OF MAGNESIA PO PRN (21:54)
[2017-09-25] MEDS ORDERED: BENADRYL PO PRN (21:54)
--- NOTE | 2017-09-25 21:57 | History and Physical Report ---
History of Present Illness Date of examination: 09/25/17 History of present illness: 22-year-old man with a history of sickle cell comes emergency room complaining of bilateral rib pain andchest pain which she describes as sharp, constant, intensity 9/10, no radiation, started yesterday. He stated that this is typical of his sickle cell pain. Denies cough, fever, chills, shortness of breath Review Of Systems: Constitutional: no weight loss Ears, eyes, nose, mouth and throat: no nasal congestion, no nasal discharge, no sinus pressure, blurry vision, diplopia Neck: No neck pain or rigidity. Cardiovascular: No palpitations Respiratory: No shortness of breath, cough Gastrointestinal: No abdominal pain, hematochezia Genitourinary : no dysuria, frequency , hematuria Musculoskeletal: no muscle ache Integumentary: no rash, no pruritis Neurological: no parathesias, focal weakness Endocrine: no cold or heat intolerance, no polyuria or polydipsia Hematologic/Lymphatic: no easy bruising, no easy bleeding, no gland swelling Allergic/Immunologic: no urticaria, no angioedema PAST MEDICAL HISTORY: Sickle cell PAST SURGICAL HISTORY: Knee surgery SOCIAL HISTORY: Denies alcohol, tobacco, drugs FAMILY HISTORY: Sickle cell Medications and Allergies Allergies Allergy/AdvReac Type Severity Reaction Status Date / Time amoxicillin [From Augmentin] Allergy Hives Verified 08/28/17 21:55 cefprozil [From Cefzil] Allergy Hives Verified 08/28/17 21:55 clavulanic acid Allergy Hives Verified 08/28/17 21:55 [From Augmentin] promethazine [From Phenergan] Allergy Hives Verified 08/28/17 21:55 Home Medications Medication Instructions Recorded Confirmed Last Taken Type Folic Acid [Folvite] 1 mg PO QDAY #30 tablet 08/31/17 Unknown Rx Levofloxacin [Levaquin TAB] 750 mg PO Q24HR #4 tablet 08/31/17 Unknown Rx Oxycodone HCl [Oxycontin] 30 mg PO BID #20 tab 08/31/17 Unknown Rx Oxycodone HCl [Roxicodone] 30 mg PO BID PRN #20 tablet 08/31/17 Unknown Rx Sennosides Tab [Senokot] 17.2 mg PO QHS #30 tablet 08/31/17 Unknown Rx Exam - Physical Exam Narrative exam: Gen. appearance: Patient lying in bed, no apparent distress HEENT: Normocephalic, atraumatic, pupils equally round and reactive to light, extraocular movement intact, and no sclericterus,. No JVD or thyromegaly or nodule,neck supple, no carotid bruit ,mucous membranes moist, no exudate or erythema Heart: S1, S2, regular rate and rhythm Lungs: Clear to auscultation bilaterally, breathing comfortable Abdomen: Positive bowel sounds, nontender, nondistended, no organomegaly Extremity: No edema, cyanosis, clubbing Skin: No rash, nodules, warm, dry Neuro: Oriented 3, cranial nerves II-12 intact, speech is fluent, motor and sensory intact - Constitutional Vitals: Temp Pulse Resp BP Pulse Ox 98.4 F 79 18 115/73 100 09/25/17 17:50 09/25/17 17:50 09/25/17 17:50 09/25/17 21:30 09/25/17 21:30 Results - Labs CBC & Chem 7: 09/25/17 18:01 09/25/17 19:35 Labs: Abnormal lab results 09/25/17 09/25/17 09/25/17 Range/Units 18:01 18:36 19:35 WBC 14.6 H (4.5-11.0) K/mm3 MCV 78 L (84-94) fl MCH 27 L (28-32) pg RDW 19.7 H (13.2-15.2) % [place] # 0.9 H (0.0-0.8) K/mm3 Seg Neutrophils % 78.3 H (40.0-70.0) % Seg Neutrophils # 11.4 H (1.8-7.7) K/mm3 Percent Retic 4.39 H (0.78-2.58) % BUN 5 L 5 L (9-20) mg/dL Creatinine 0.6 L 0.6 L (0.8-1.5) mg/dL - Imaging and Cardiology EKG: image reviewed Chest x-ray: image reviewed CT scan - chest: report reviewed Assessment and Plan Assessment Sickle cell crisis Leukocytosis, stressed induced Plan Start sickle cell protocol with IV fluids, IV narcotics dvt prophalaxis, monitor his CBC, reticulocyte
[2017-09-25] MEDS ORDERED: D5/0.45NS 1,000 ML IV SCH (22:00)
[2017-09-25] MEDS: SENOKOT PO SCH (22:56)
[2017-09-25] MEDS: OxyCONTIN PO SCH (22:57)
[2017-09-25] MEDS ORDERED: BENADRYL ONE (23:07)
[2017-09-26] MEDS ORDERED: DILAUDID IV ONE ×2 (00:29→01:00)
[2017-09-26] MEDS ORDERED: TORADOL IV ONE (02:39)
[2017-09-26] MEDS ORDERED: BENADRYL IV ONE (02:49)
[2017-09-26] MEDS: DILAUDID IV PRN ×6 (05:19→22:51)
[2017-09-26] MEDS: OxyCONTIN PO SCH ×3 (06:40→22:53)
[2017-09-26 07:44] LABS: BUN/Creatinine Ratio 8; Blood Urea Nitrogen 5 mg/dL (9-20); Calcium 8.9 mg/dL (8.4-10.2); Hemolysis Index 3
[2017-09-26] MEDS: FOLVITE PO SCH (09:40)
[2017-09-26] MEDS: THERAGRAN Tab PO SCH (09:41)
[2017-09-26] MEDS: BENADRYL IV PRN ×3 (09:41→22:51)
[2017-09-26] MEDS: LOVENOX SUB-Q SCH (09:43)
--- NOTE | 2017-09-26 15:50 | Progress Note ---
Assessment and Plan Assessment and plan: Patient is 22 yo man with a history of sickle cell anemia who presents with ribs ,chest and back pains. He denies cough CTA chest IMPRESSION: No evidence for pulmonary embolism. Linear atelectasis in the lingula is noted -Sickle cell pain crisis: ivf, iv narcotics, consult hematology -Atelectasis: order incentive spirometry -SIRs: follow up blood culture History Interval history: Patient was seen and examined. Follow-up on current diagnosis, rib pains and back pain. Overnight uneventful. Patient denies any chest pain, shortness breath, nausea/vomiting or severe headaches. Imaging, nursing note, chart, labs and old chart reviewed. Discussed with patient. Hospitalist Physical - Physical exam Narrative exam: GEN: WDWN, NAD, AWAKE, ALERT, ORIENTATED 3 HEENT: NCAT, EOMI, PERRL, OP Clear NECK: supple, no adenopathy, no thyromegaly, no JVD CVS/HEART: RRR, NORMAL S1S2, pulses present bilaterally CHEST/LUNGS: CTA B, Symmetrical chest expansion, good air entry bilaterally GI/Abdomen: soft, NTND, good bowel sounds, no guarding or rebound /Bladder: no suprapubic tenderness, no CVA or paraspinal tenderness EXT/Skin: no c/c/e, no obvious rash MSK: FROM x 4 Neuro: CN 2-12 grossly intact, no new focal deficits Psych: calm - Constitutional Vitals: Temp Pulse Resp BP Pulse Ox 98.1 F 74 20 122/70 99 09/26/17 08:25 09/26/17 08:25 09/26/17 09:41 09/26/17 08:25 09/26/17 08:25 Results - Labs CBC & Chem 7: 09/25/17 18:01 09/26/17 07:11 Labs: Laboratory Last Values WBC 14.6 K/mm3 (4.5-11.0) H 09/25/17 18:01 RBC 4.70 M/mm3 (3.65-5.03) 09/25/17 18:01 Hgb 12.6 gm/dl (11.8-15.2) 09/25/17 18:01 Hct 36.8 % (35.5-45.6) 09/25/17 18:01 MCV 78 fl (84-94) L 09/25/17 18:01 MCH 27 pg (28-32) L 09/25/17 18:01 MCHC 34 % (32-34) 09/25/17 18:01 RDW 19.7 % (13.2-15.2) H 09/25/17 18:01 Plt Count 358 K/mm3 (140-440) 09/25/17 18:01 Lymph % (Auto) 14.9 % (13.4-35.0) 09/25/17 18:01 [place] % (Auto) 6.0 % (0.0-7.3) 09/25/17 18:01 Eos % (Auto) 0.4 % (0.0-4.3) 09/25/17 18:01 Baso % (Auto) 0.4 % (0.0-1.8) 09/25/17 18:01 Lymph # 2.2 K/mm3 (1.2-5.4) 09/25/17 18:01 [place] # 0.9 K/mm3 (0.0-0.8) H 09/25/17 18:01 Eos # 0.1 K/mm3 (0.0-0.4) 09/25/17 18:01 Baso # 0.1 K/mm3 (0.0-0.1) 09/25/17 18:01 Seg Neutrophils % 78.3 % (40.0-70.0) H 09/25/17 18:01 Seg Neutrophils # 11.4 K/mm3 (1.8-7.7) H 09/25/17 18:01 Percent Retic 4.39 % (0.78-2.58) H 09/25/17 18:01 Sodium 140 mmol/L (137-145) 09/26/17 07:11 Potassium 3.9 mmol/L (3.6-5.0) 09/26/17 07:11 Chloride 97.3 mmol/L (98-107) L 09/26/17 07:11 Carbon Dioxide 29 mmol/L (22-30) 09/26/17 07:11 Anion Gap 18 mmol/L 09/26/17 07:11 BUN 5 mg/dL (9-20) L 09/26/17 07:11 Creatinine 0.6 mg/dL (0.8-1.5) L 09/26/17 07:11 Estimated GFR > 60 ml/min 09/26/17 07:11 BUN/Creatinine Ratio 8 % 09/26/17 07:11 Glucose 88 mg/dL (75-100) 09/26/17 07:11 Calcium 8.9 mg/dL (8.4-10.2) 09/26/17 07:11
[2017-09-26] MEDS: D5/0.45NS 1,000 ML IV SCH (16:18)
[2017-09-26] MEDS ORDERED: DILAUDID IV PRN (16:20)
[2017-09-26] MEDS: SENOKOT PO SCH (22:54)
[2017-09-27] MEDS: DILAUDID IV PRN ×7 (01:32→14:25)
[2017-09-27] MEDS: OxyCONTIN PO SCH ×2 (06:12→14:05)
[2017-09-27] MEDS: BENADRYL IV PRN ×2 (06:12→12:20)
[2017-09-27] MEDS: D5/0.45NS 1,000 ML IV SCH (08:09)
[2017-09-27 08:54] VITALS: BP 137/69
--- NOTE | 2017-09-27 09:29 | Hem/Onc Progress Note ---
Assessment and Plan If pain controlled, he can be discharged home and follow-up with Dr. Pate. He states he missed his last appointment will make another appointment. Subjective Date of service: 09/27/17 Interval history: Patient known to Dr. Pate. History of sickle cell SC disease. Admitted with chest pains. He is currently on hydromorphone every 2 hours. He states the pain is better. He thinks he can go home. Objective - Constitutional Vitals: Last Vital Signs Temp 98.7 F 09/27/17 07:49 Pulse 92 H 09/27/17 07:49 Resp 20 09/27/17 07:49 BP 137/69 09/27/17 07:49 Pulse Ox 99 09/27/17 07:49 General appearance: mild distress Performance status: 2- selfcare, ambulatory - Neck Neck: supple - Respiratory Respiratory effort: Positive: normal Respiratory: bilateral: diminished - Cardiovascular Rhythm: regular - Gastrointestinal General gastrointestinal: Present: soft
[2017-09-27] MEDS: THERAGRAN Tab PO SCH (10:30)
[2017-09-27] MEDS: FOLVITE PO SCH (10:30)
[2017-09-27] MEDS: LOVENOX SUB-Q SCH (10:30)
--- NOTE | 2017-09-27 12:33 | Discharge Summary ---
Providers - Providers Date of Admission: 09/25/17 21:54 Date of discharge: 09/27/17 Attending physician: DONNY MORRIS 09/26/17 15:46 Consult to Physician [CONS] Routine Comment: Consulting Provider: PAM LLOYD Physician Instructions: Reason For Exam: Sickle cell crisis, pt known to you Primary care physician: LISA SHIRLEY Hospitalization Condition: Stable Hospital course: Patient is 22 yo man with a history of sickle cell anemia who presents with ribs ,chest and back pains. He denies cough CTA chest IMPRESSION: No evidence for pulmonary embolism. Linear atelectasis in the lingula is noted -Sickle cell pain crisis: ivf, iv narcotics, consult hematology -Atelectasis: order incentive spirometry -SIRs: follow up blood culture "If pain controlled, he can be discharged home and follow-up with Dr. Hoyt. He states he missed his last appointment will make another appointment. Subjective Date of service: 09/27/17 Interval history: Patient known to Dr. Hoyt. History of sickle cell SC disease. Admitted with chest pains. He is currently on hydromorphone every 2 hours. He states the pain is better. He thinks he can go home." per Heme/Onc Dr. Lloyd Disposition: DC-01 TO HOME OR SELFCARE Time spent for discharge: 35 minutes Core Measure Documentation - Palliative Care Palliative Care/ Comfort Measures: Not Applicable - Core Measures Any of the following diagnoses?: none - VTE Discharge Requirements Deep Vein Thrombosis/Pulmonary Embolism Present on Admission: No Has pt received <5 days of overlap therapy or INR<2.0: No Anticoagulant overlap therapy prescribed at discharge: No Contraindication No Overlap Therapy order at DC: Not Indicated Exam - Physical Exam Narrative exam: GEN: WDWN, NAD, AWAKE, ALERT, ORIENTATED 3 HEENT: NCAT, EOMI, PERRL, OP Clear NECK: supple, no adenopathy, no thyromegaly, no JVD CVS/HEART: RRR, NORMAL S1S2, pulses present bilaterally CHEST/LUNGS: CTA B, Symmetrical chest expansion, good air entry bilaterally GI/Abdomen: soft, NTND, good bowel sounds, no guarding or rebound /Bladder: no suprapubic tenderness, no CVA or paraspinal tenderness EXT/Skin: no c/c/e, no obvious rash MSK: FROM x 4 Neuro: CN 2-12 grossly intact, no new focal deficits Psych: calm - Constitutional Vitals: Temp Pulse Resp BP Pulse Ox 98.7 F 92 H 20 137/69 99 09/27/17 07:49 09/27/17 07:49 09/27/17 07:49 09/27/17 07:49 09/27/17 07:49 Plan Activity: other (no strenous activity) Diet: regular Follow up with: LISA SHIRLEY MD [Primary Care Provider] - 3-5 Days RHEA HOYT MD [Staff Physician] - 7 Days Prescriptions: Oxycodone HCl [Roxicodone] 30 mg PO BID PRN #3 day PRN Reason: Pain , Severe (7-10)
== END 2017-09-27 15:30 | disposition home or self-care (01) | DRG 812 ==
LOC: ED 16:10 → 3A 21:54
PROVIDERS: ADMIT Internal Medicine; ATTEND Internal Medicine
DX: D57.00 Hb-SS disease with crisis, unspecified (principal); J98.11 Atelectasis; D72.829 Elevated white blood cell count, unspecified; R65.10 Systemic inflammatory response syndrome (SIRS) of non-infectious origin without acute organ dysfunction; Z88.1 Allergy status to other antibiotic agents
CPT/HCPCS: 36415; 71046; 71275; 80048; 82565; 84520; 85025; 85045; 87040; 96361; 96374; 96375; 96376; J1170; J1200; J1650; J1885; J2270; J2405; J7030; Q9967

== ENCOUNTER 2017-10-19 22:41 | Inpatient (IN) | payer OTHER ==
[2017-10-19 23:21] LABS: Basophils # (Auto) 0.1 K/mm3 (0.0-0.1); Basophils % (Auto) 0.6 % (0.0-1.8); Eosinophils # (Auto) 0.1 K/mm3 (0.0-0.4); Eosinophils % (Auto) 0.6 % (0.0-4.3); Hematocrit 34.6 % (35.5-45.6); Hemoglobin 11.6 gm/dl (11.8-15.2); Lymphocytes # (Auto) 4.1 K/mm3 (1.2-5.4); Lymphocytes % (Auto) 35.4 % (13.4-35.0); Mean Corpuscular HGB Conc 34 % (32-34); Mean Corpuscular Hemoglobin 26 pg (28-32); Mean Corpuscular Volume 78 fl (84-94); Monocytes # (Auto) 0.8 K/mm3 (0.0-0.8); Platelet Count 351 K/mm3 (140-440); Red Blood Count 4.44 M/mm3 (3.65-5.03); Red Cell Distribution Width 18.4 % (13.2-15.2)
[2017-10-19 23:34] LABS: Alanine Aminotransferase 20 units/L (7-56); Albumin 4.1 g/dL (3.9-5); BUN/Creatinine Ratio 12; Blood Urea Nitrogen 7 mg/dL (9-20); Calcium 8.8 mg/dL (8.4-10.2); Hemolysis Index 7
[2017-10-20 00:23] LABS: Bilirubin,Urine NEG (Negative); Blood,Urine NEG (Negative); Color,Urine Yellow (Yellow); Mucus,Urine FEW /HPF; Protein,Urine <15 mg/dL mg/dL (Negative); Urobilinogen,Urine < 2.0 mg/dL (<2.0)
[2017-10-20] MEDS ORDERED: TORADOL IV ONE (01:56)
[2017-10-20] MEDS ORDERED: NACL 0.9% 1000 ML 1,000 ML ONE (01:56)
[2017-10-20] MEDS ORDERED: DILAUDID IV ONE (01:56)
[2017-10-20] MEDS ORDERED: NACL 0.9% 1000 ML 1,000 ML IV ONE (01:56)
[2017-10-20] MEDS ORDERED: ZOFRAN ONE (01:56)
[2017-10-20] MEDS ORDERED: DILAUDID ONE ×4 (01:56→05:21)
--- NOTE | 2017-10-20 02:56 | XRay Report ---
FINAL REPORT EXAM: XR CXR CLINICAL INDICATIONS: SICKLE CELL CRISIS, CP FINDINGS: Single frontal view of the chest was acquired and compared to prior examination of September 25, 2017. The heart is normal in size. The lungs appear hyperinflated, somewhat worse in comparison to the prior exam. There is no consolidative infiltrate. The pulmonary vasculature is within normal limits. IMPRESSION: HYPERINFLATION, WORSE NO CONSOLIDATIVE INFILTRATE
[2017-10-20] MEDS ORDERED: ZOFRAN IV ONE (03:31)
[2017-10-20] MEDS ORDERED: DILAUDID IV PRN (04:39)
[2017-10-20] MEDS ORDERED: MILK OF MAGNESIA PO PRN (04:39)
[2017-10-20] MEDS ORDERED: DULCOLAX PR PRN (04:39)
--- NOTE | 2017-10-20 04:43 | History and Physical Report ---
History of Present Illness Date of examination: 10/20/17 History of present illness: 22-year-old man with a history of sickle cell comes emergency room who was just discharged from the hospital on 09/27 return today for evaluation of bilateral rib pain and epigastric pain which she describes as stabbing, constant, intensity 8/10, no radiation, started yesterday. He stated that this is typical of his sickle cell pain. Denies cough, fever, chills, shortness of breath Review Of Systems: Constitutional: no weight loss Ears, eyes, nose, mouth and throat: no nasal congestion, no nasal discharge, no sinus pressure, blurry vision, diplopia Neck: No neck pain or rigidity. Cardiovascular: No palpitations Respiratory: No shortness of breath, cough Gastrointestinal: No abdominal pain, hematochezia Genitourinary : no dysuria, frequency , hematuria Musculoskeletal: no muscle ache Integumentary: no rash, no pruritis Neurological: no parathesias, focal weakness Endocrine: no cold or heat intolerance, no polyuria or polydipsia Hematologic/Lymphatic: no easy bruising, no easy bleeding, no gland swelling Allergic/Immunologic: no urticaria, no angioedema PAST MEDICAL HISTORY: Sickle cell PAST SURGICAL HISTORY: Knee surgery SOCIAL HISTORY: Denies alcohol, tobacco, drugs FAMILY HISTORY: Sickle cell Medications and Allergies Allergies Allergy/AdvReac Type Severity Reaction Status Date / Time amoxicillin [From Augmentin] Allergy Hives Verified 08/28/17 21:55 cefprozil [From Cefzil] Allergy Hives Verified 08/28/17 21:55 clavulanic acid Allergy Hives Verified 08/28/17 21:55 [From Augmentin] promethazine [From Phenergan] Allergy Hives Verified 08/28/17 21:55 Home Medications Medication Instructions Recorded Confirmed Last Taken Type Folic Acid [Folvite] 1 mg PO QDAY #30 tablet 10/22/17 Unknown Rx Oxycodone HCl [Roxicodone] 30 mg PO Q4H PRN #18 tab 10/22/17 Unknown Rx Sennosides Tab [Senokot] 17.2 mg PO QHS #30 tablet 10/22/17 Unknown Rx Exam - Physical Exam Narrative exam: Gen. appearance: Patient lying in bed, no apparent distress HEENT: Normocephalic, atraumatic, pupils equally round and reactive to light, extraocular movement intact, and no sclericterus,. No JVD or thyromegaly or nodule,neck supple, no carotid bruit ,mucous membranes moist, no exudate or erythema Heart: S1, S2, regular rate and rhythm Lungs: Clear to auscultation bilaterally, breathing comfortable Abdomen: Positive bowel sounds, nontender, nondistended, no organomegaly Extremity: No edema, cyanosis, clubbing Skin: No rash, nodules, warm, dry Neuro: Oriented 3, cranial nerves II-12 intact, speech is fluent, motor and sensory intact - Constitutional Vitals: Temp Pulse Resp BP Pulse Ox 98.7 F 84 18 138/66 98 10/19/17 22:46 10/19/17 22:46 10/20/17 02:21 10/19/17 22:46 10/19/17 22:46 Results - Labs CBC & Chem 7: 10/20/17 05:02 10/20/17 05:02 Labs: Abnormal lab results 10/19/17 10/19/17 Range/Units 23:00 23:00 WBC 11.7 H (4.5-11.0) K/mm3 Hgb 11.6 L (11.8-15.2) gm/dl Hct 34.6 L (35.5-45.6) % MCV 78 L (84-94) fl MCH 26 L (28-32) pg RDW 18.4 H (13.2-15.2) % Lymph % (Auto) 35.4 H (13.4-35.0) % Percent Retic 3.91 H (0.78-2.58) % BUN 7 L (9-20) mg/dL Creatinine 0.6 L (0.8-1.5) mg/dL Glucose 116 H (75-100) mg/dL Assessment and Plan Assessment Sickle cell crisis Plan Start sickle cell protocol with IV fluids, IV narcotics dvt prophalaxis, monitor his CBC, reticulocyte
--- NOTE | 2017-10-20 04:54 | Emergency Department Report ---
ED General Adult HPI - General Chief complaint: Sickle Cell Crisis Stated complaint: SICKLE CELL Time Seen by Provider: 10/20/17 01:52 Source: patient Mode of arrival: Ambulatory Limitations: Physical Limitation - History of Present Illness Initial comments: Mr. Alexandre is a 22-year-old male with history of hemoglobin SC sickle cell disease. He has severe 8 out of 10 with pain. Denies cough denies shortness of breath denies fever. Gradual onset of symptoms. He has pain typically in his rib cage with sickle cell crisis. He does not have a primary care physician or thread trimmer. -: Gradual, days(s) (2) Location: chest Severity scale (0 -10): 8 Quality: aching Consistency: constant, intermittent Worsens with: none Associated Symptoms: chest pain. denies: fever/chills - Related Data Previous Rx's Medication Instructions Recorded Last Taken Type Folic Acid [Folvite] 1 mg PO QDAY #30 tablet 08/31/17 Unknown Rx Levofloxacin [Levaquin TAB] 750 mg PO Q24HR #4 tablet 08/31/17 Unknown Rx Sennosides Tab [Senokot] 17.2 mg PO QHS #30 tablet 08/31/17 Unknown Rx Oxycodone HCl [Roxicodone] 30 mg PO BID PRN #3 day 09/27/17 Unknown Rx Allergies Allergy/AdvReac Type Severity Reaction Status Date / Time amoxicillin [From Augmentin] Allergy Hives Verified 08/28/17 21:55 cefprozil [From Cefzil] Allergy Hives Verified 08/28/17 21:55 clavulanic acid Allergy Hives Verified 08/28/17 21:55 [From Augmentin] promethazine [From Phenergan] Allergy Hives Verified 08/28/17 21:55 ED Review of Systems ROS: Stated complaint: SICKLE CELL Other details as noted in HPI Comment: All other systems reviewed and negative Constitutional: denies: fever, malaise Respiratory: denies: cough Cardiovascular: chest pain ED Past Medical Hx - Past Medical History Hx Congestive Heart Failure: No Hx Diabetes: No Hx Sickle Cell Disease: Yes Hx Asthma: No Hx COPD: No Hx HIV: No Additional medical history: Pneumonia - Surgical History Additional Surgical History: RT Knee, Broncossopy - Social History Smoking Status: Never Smoker Substance Use Type: None - Medications Home Medications: Home Medications Medication Instructions Recorded Confirmed Last Taken Type Folic Acid [Folvite] 1 mg PO QDAY #30 tablet 08/31/17 Unknown Rx Levofloxacin [Levaquin TAB] 750 mg PO Q24HR #4 tablet 08/31/17 Unknown Rx Sennosides Tab [Senokot] 17.2 mg PO QHS #30 tablet 08/31/17 Unknown Rx Oxycodone HCl [Roxicodone] 30 mg PO BID PRN #3 day 09/27/17 Unknown Rx ED Physical Exam - General Limitations: Physical Limitation General appearance: alert, in no apparent distress, other (appears uncomfortable ) - Head Head exam: Present: atraumatic, normocephalic - Eye Eye exam: Present: normal appearance - ENT ENT exam: Present: mucous membranes moist - Neck Neck exam: Present: normal inspection - Respiratory Respiratory exam: Present: normal lung sounds bilaterally. Absent: respiratory distress, wheezes, rales, rhonchi - Cardiovascular Cardiovascular Exam: Present: regular rate, normal rhythm, normal heart sounds. Absent: systolic murmur, diastolic murmur, rubs, gallop - GI/Abdominal GI/Abdominal exam: Present: soft, normal bowel sounds. Absent: distended, tenderness, guarding, rebound - Rectal Rectal exam: Present: deferred - Extremities Exam Extremities exam: Present: normal inspection - Back Exam Back exam: Present: normal inspection - Neurological Exam Neurological exam: Present: alert, oriented X3 - Psychiatric Psychiatric exam: Present: normal affect, normal mood - Skin Skin exam: Present: warm, dry, intact, normal color. Absent: rash ED Course Vital Signs 10/19/17 10/20/17 22:46 02:21 Temperature 98.7 F Pulse Rate 84 Respiratory 20 18 Rate Blood Pressure 138/66 Blood Pressure 138/66 [Right] O2 Sat by Pulse 98 Oximetry ED Medical Decision Making - Lab Data Result diagrams: 10/19/17 23:00 10/19/17 23:00 Laboratory Results - last 24 hr 10/19/17 10/19/17 10/19/17 23:00 23:00 Unknown WBC 11.7 H RBC 4.44 Hgb 11.6 L Hct 34.6 L MCV 78 L MCH 26 L MCHC 34 RDW 18.4 H Plt Count 351 Lymph % (Auto) 35.4 H [place] % (Auto) 7.0 Eos % (Auto) 0.6 Baso % (Auto) 0.6 Lymph # 4.1 [place] # 0.8 Eos # 0.1 Baso # 0.1 Seg Neutrophils % 56.4 Seg Neutrophils # 6.6 Percent Retic 3.91 H Sodium 141 Potassium 4.2 Chloride 103.0 Carbon Dioxide 23 Anion Gap 19 BUN 7 L Creatinine 0.6 L Estimated GFR > 60 BUN/Creatinine Ratio 12 Glucose 116 H Calcium 8.8 Total Bilirubin 0.60 AST 18 ALT 20 Alkaline Phosphatase 98 Total Protein 7.0 Albumin 4.1 Albumin/Globulin Ratio 1.4 Urine Color Yellow Urine Turbidity Clear Urine pH 6.0 Ur Specific [place] 1.013 Urine Protein <15 mg/dl Urine Glucose (UA) Neg Urine Ketones Neg Urine Blood Neg Urine Nitrite Neg Urine Bilirubin Neg Urine Urobilinogen < 2.0 Ur Leukocyte Esterase Neg Urine WBC (Auto) 1.0 Urine RBC (Auto) 1.0 Urine Mucus Few Vital Signs - 24 hr 10/19/17 10/20/17 22:46 02:21 Temperature 98.7 F Pulse Rate 84 Respiratory 20 18 Rate Blood Pressure 138/66 Blood Pressure 138/66 [Right] O2 Sat by Pulse 98 Oximetry - Medical Decision Making Mr. Alexandre will be admitted to hospitalist service for sickle cell disease crisis. Critical care attestation.: If time is entered above; I have spent that time in minutes in the direct care of this critically ill patient, excluding procedure time. ED Disposition Clinical Impression: Sickle cell crisis, Chest pain Disposition: OP ADMIT IP TO THIS HOSP Is pt being admited?: Yes Does the pt Need Aspirin: No Condition: Stable Time of Disposition: 04:00
[2017-10-20] MEDS ORDERED: D5/0.45NS 1,000 ML IV SCH (05:00)
[2017-10-20] MEDS ORDERED: D5NS 0.2% 0 ML IV ONE (05:22)
[2017-10-20] MEDS ORDERED: D5/0.45NS 1,000 ML IV ONE (05:26)
[2017-10-20 05:29] LABS: Basophils # (Auto) 0.1 K/mm3 (0.0-0.1); Basophils % (Auto) 0.8 % (0.0-1.8); Eosinophils # (Auto) 0.1 K/mm3 (0.0-0.4); Eosinophils % (Auto) 1.3 % (0.0-4.3); Hemoglobin 10.8 gm/dl (11.8-15.2); Lymphocytes # (Auto) 3.8 K/mm3 (1.2-5.4); Lymphocytes % (Auto) 41.1 % (13.4-35.0); Mean Corpuscular HGB Conc 34 % (32-34); Mean Corpuscular Hemoglobin 26 pg (28-32); Mean Corpuscular Volume 78 fl (84-94); Monocytes # (Auto) 0.9 K/mm3 (0.0-0.8); Monocytes % (Auto) 9.7 % (0.0-7.3); Platelet Count 329 K/mm3 (140-440); Red Cell Distribution Width 18.2 % (13.2-15.2)
[2017-10-20] MEDS: ZOFRAN IV PRN (05:36)
[2017-10-20] MEDS: DILAUDID IV PRN ×9 (05:37→23:47)
[2017-10-20 05:57] LABS: BUN/Creatinine Ratio 14; Blood Urea Nitrogen 7 mg/dL (9-20); Calcium 8.4 mg/dL (8.4-10.2); Hemolysis Index 14
[2017-10-20] MEDS ORDERED: FOLVITE PO SCH (10:00)
[2017-10-20] MEDS: FOLVITE PO SCH (10:38)
[2017-10-20] MEDS: THERAGRAN Tab PO SCH (10:38)
[2017-10-20] MEDS: LOVENOX SUB-Q SCH (10:39)
[2017-10-20] MEDS: OxyCONTIN PO SCH ×2 (11:51→18:54)
[2017-10-20] MEDS: BENADRYL PO PRN (18:54)
[2017-10-20] MEDS ORDERED: SENOKOT PO SCH (22:00)
[2017-10-20] MEDS: SENOKOT PO SCH (23:21)
[2017-10-21] MEDS: OxyCONTIN PO SCH ×3 (00:18→22:10)
[2017-10-21] MEDS: ZOFRAN IV PRN (02:32)
[2017-10-21] MEDS: DILAUDID IV PRN ×7 (02:33→15:05)
[2017-10-21] MEDS: BENADRYL PO PRN (04:36)
[2017-10-21] MEDS ORDERED: DILAUDID IV PRN ×2 (05:49→15:20)
[2017-10-21] MEDS: FOLVITE PO SCH ×2 (08:42→11:30)
[2017-10-21] MEDS: THERAGRAN Tab PO SCH ×2 (08:42→11:30)
[2017-10-21] MEDS: LOVENOX SUB-Q SCH (11:30)
--- NOTE | 2017-10-21 13:00 | Progress Note ---
Assessment and Plan Assessment and plan: Sickle cell crisis Plan Start sickle cell protocol with IV fluids, IV narcotics dvt prophalaxis, monitor his CBC, reticulocyte Hospitalist Physical - Constitutional Vitals: Temp Pulse Resp BP Pulse Ox 98.1 F 65 20 107/70 100 10/21/17 08:03 10/21/17 08:03 10/21/17 08:03 10/21/17 08:03 10/21/17 08:03 Results - Labs CBC & Chem 7: 10/20/17 05:02 10/20/17 05:02 Labs: Laboratory Last Values WBC 9.3 K/mm3 (4.5-11.0) 10/20/17 05:02 RBC 4.10 M/mm3 (3.65-5.03) 10/20/17 05:02 Hgb 10.8 gm/dl (11.8-15.2) L 10/20/17 05:02 Hct 32.0 % (35.5-45.6) L 10/20/17 05:02 MCV 78 fl (84-94) L 10/20/17 05:02 MCH 26 pg (28-32) L 10/20/17 05:02 MCHC 34 % (32-34) 10/20/17 05:02 RDW 18.2 % (13.2-15.2) H 10/20/17 05:02 Plt Count 329 K/mm3 (140-440) 10/20/17 05:02 Lymph % (Auto) 41.1 % (13.4-35.0) H 10/20/17 05:02 [place] % (Auto) 9.7 % (0.0-7.3) H 10/20/17 05:02 Eos % (Auto) 1.3 % (0.0-4.3) 10/20/17 05:02 Baso % (Auto) 0.8 % (0.0-1.8) 10/20/17 05:02 Lymph # 3.8 K/mm3 (1.2-5.4) 10/20/17 05:02 [place] # 0.9 K/mm3 (0.0-0.8) H 10/20/17 05:02 Eos # 0.1 K/mm3 (0.0-0.4) 10/20/17 05:02 Baso # 0.1 K/mm3 (0.0-0.1) 10/20/17 05:02 Seg Neutrophils % 47.1 % (40.0-70.0) 10/20/17 05:02 Seg Neutrophils # 4.4 K/mm3 (1.8-7.7) 10/20/17 05:02 Percent Retic 3.65 % (0.78-2.58) H 10/21/17 06:14 Sodium 137 mmol/L (137-145) 10/20/17 05:02 Potassium 4.4 mmol/L (3.6-5.0) 10/20/17 05:02 Chloride 101.7 mmol/L (98-107) 10/20/17 05:02 Carbon Dioxide 21 mmol/L (22-30) L 10/20/17 05:02 Anion Gap 19 mmol/L 10/20/17 05:02 BUN 7 mg/dL (9-20) L 10/20/17 05:02 Creatinine 0.5 mg/dL (0.8-1.5) L 10/20/17 05:02 Estimated GFR > 60 ml/min 10/20/17 05:02 BUN/Creatinine Ratio 14 % 10/20/17 05:02 Glucose 76 mg/dL (75-100) 10/20/17 05:02 Calcium 8.4 mg/dL (8.4-10.2) 10/20/17 05:02 Total Bilirubin 0.60 mg/dL (0.1-1.2) 10/19/17 23:00 AST 18 units/L (5-40) 10/19/17 23:00 ALT 20 units/L (7-56) 10/19/17 23:00 Alkaline Phosphatase 98 units/L (35-129) 10/19/17 23:00 Lactate Dehydrogenase 221 units/L (91-180) H 10/21/17 06:14 Total Protein 7.0 g/dL (6.3-8.2) 10/19/17 23:00 Albumin 4.1 g/dL (3.9-5) 10/19/17 23:00 Albumin/Globulin Ratio 1.4 % 10/19/17 23:00 Urine Color Yellow (Yellow) 10/19/17 Unknown Urine Turbidity Clear (Clear) 10/19/17 Unknown Urine pH 6.0 (5.0-7.0) 10/19/17 Unknown Ur Specific [place] 1.013 (1.003-1.030) 10/19/17 Unknown Urine Protein <15 mg/dl mg/dL (Negative) 10/19/17 Unknown Urine Glucose (UA) Neg mg/dL (Negative) 10/19/17 Unknown Urine Ketones Neg mg/dL (Negative) 10/19/17 Unknown Urine Blood Neg (Negative) 10/19/17 Unknown Urine Nitrite Neg (Negative) 10/19/17 Unknown Urine Bilirubin Neg (Negative) 10/19/17 Unknown Urine Urobilinogen < 2.0 mg/dL (<2.0) 10/19/17 Unknown Ur Leukocyte Esterase Neg (Negative) 10/19/17 Unknown Urine WBC (Auto) 1.0 /HPF (0.0-6.0) 10/19/17 Unknown Urine RBC (Auto) 1.0 /HPF (0.0-6.0) 10/19/17 Unknown Urine Mucus Few /HPF 10/19/17 Unknown
--- NOTE | 2017-10-21 21:20 | Consultation ---
History of Present Illness - Reason for Consult Consult date: 10/21/17 SCD/Pain crisis. Requesting physician: BRIANA WHITNEY - History of Present Illness Patient seen/examined, resting in bed, record reviewed, case d/w patient.As per patient, his pain now going back to a10 level. He is also not on IVF.Will start on hydration ,as this will help with his care, and adjust his pain meds for a short time, to get him out of the current pain level. Medications and Allergies Allergies Allergy/AdvReac Type Severity Reaction Status Date / Time amoxicillin [From Augmentin] Allergy Hives Verified 08/28/17 21:55 cefprozil [From Cefzil] Allergy Hives Verified 08/28/17 21:55 clavulanic acid Allergy Hives Verified 08/28/17 21:55 [From Augmentin] promethazine [From Phenergan] Allergy Hives Verified 08/28/17 21:55 Home Medications Medication Instructions Recorded Confirmed Last Taken Type Folic Acid [Folvite] 1 mg PO QDAY #30 tablet 08/31/17 Unknown Rx Levofloxacin [Levaquin TAB] 750 mg PO Q24HR #4 tablet 08/31/17 Unknown Rx Sennosides Tab [Senokot] 17.2 mg PO QHS #30 tablet 08/31/17 Unknown Rx Oxycodone HCl [Roxicodone] 30 mg PO BID PRN #3 day 09/27/17 Unknown Rx Active Meds: Active Medications Bisacodyl (Dulcolax) 10 mg [place] QDAY PRN PRN Reason: Constipation unrelieved by MOM Diphenhydramine HCl (Benadryl) 25 mg PO Q6H PRN PRN Reason: Itching Last Admin: 10/21/17 04:36 Dose: 25 mg Enoxaparin Sodium (Lovenox) 40 mg SUB-Q QDAY [facility] Last Admin: 10/21/17 11:30 Dose: Not Given Folic Acid (Folvite) 1 mg PO QDAY [facility] Last Admin: 10/21/17 11:30 Dose: Not Given Hydromorphone HCl (Dilaudid) 2 mg IV Q4H PRN PRN Reason: Pain , Severe (7-10) Last Admin: 10/21/17 20:17 Dose: 2 mg Magnesium Hydroxide (Milk Of Magnesia) 30 ml PO Q4H PRN PRN Reason: Constipation Multivitamins (Theragran Tab) 1 each PO QDAY [facility] Last Admin: 10/21/17 11:30 Dose: Not Given Ondansetron HCl (Zofran) 4 mg IV Q4H PRN PRN Reason: Nausea And Vomiting Last Admin: 10/21/17 02:32 Dose: 4 mg Oxycodone HCl (Oxycontin) 30 mg PO Q8HR [facility] Senna (Senokot) 17.2 mg PO QHS [facility] Last Admin: 10/20/17 23:21 Dose: Not Given Review of Systems Constitutional: chronic pain Musculoskeletal: low back pain Exam - Constitutional Vitals: Temp Pulse Resp BP Pulse Ox 98.6 F 81 16 116/74 97 10/21/17 15:25 10/21/17 15:25 10/21/17 15:25 10/21/17 15:25 10/21/17 15:25 General appearance: Present: mild distress, well-nourished - EENT Eyes: Present: PERRL ENT: hearing intact, clear oral mucosa - Neck Neck: Present: supple, normal ROM - Respiratory Respiratory effort: normal Respiratory: bilateral: CTA - Cardiovascular Heart Sounds: Present: S1 & S2. Absent: rub, click - Extremities Extremities: pulses symmetrical, No edema Peripheral Pulses: within normal limits - Abdominal General gastrointestinal: Present: soft, non-tender, non-distended, normal bowel sounds Male genitourinary: Present: deferred - Rectal Rectal Exam: deferred - Integumentary Integumentary: Present: clear, warm, dry - Musculoskeletal Musculoskeletal: gait normal, strength equal bilaterally - Psychiatric Psychiatric: appropriate mood/affect, intact judgment & insight - Neurologic Neurologic: CNII-XII intact, moves all extremities Results - Labs CBC & Chem 7: 10/20/17 05:02 10/20/17 05:02 Labs: Abnormal lab results 10/21/17 10/21/17 Range/Units 06:14 06:14 Percent Retic 3.65 H (0.78-2.58) % Lactate Dehydrogenase 221 H (91-180) units/L Assessment and Plan - Patient Problems (1) Chest pain Current Visit: Yes Status: Acute Plan to address problem: patient describes general pain, non specific to his chest. (2) Sickle cell crisis Current Visit: Yes Status: Acute Plan to address problem: Pain control. (3) Dehydration Current Visit: Yes Status: Acute Plan to address problem: Hydration
[2017-10-21] MEDS ORDERED: BENADRYL IV SCH (22:00)
[2017-10-21] MEDS: SENOKOT PO SCH (22:10)
[2017-10-21] MEDS: D5NS 0.2% 1,000 ML IV SCH (23:38)
[2017-10-22] MEDS: DILAUDID IV PRN ×5 (01:02→15:07)
[2017-10-22] MEDS: BENADRYL IV PRN ×4 (01:03→15:07)
[2017-10-22] MEDS: D5NS 0.2% 1,000 ML IV SCH (06:39)
[2017-10-22] MEDS: OxyCONTIN PO SCH ×2 (06:58→14:16)
[2017-10-22 09:07] VITALS: BP 126/74
[2017-10-22] MEDS: THERAGRAN Tab PO SCH (09:09)
[2017-10-22] MEDS: FOLVITE PO SCH (09:09)
[2017-10-22] MEDS: LOVENOX SUB-Q SCH (09:10)
[2017-10-22] MEDS ORDERED: DILAUDID IV PRN (12:30)
--- NOTE | 2017-10-22 16:47 | Discharge Summary ---
Providers - Providers Date of Admission: 10/20/17 04:39 Attending physician: BRIANA WHITNEY MD 10/21/17 15:10 Consult to Physician [CONS] Routine Comment: Consulting Provider: EDGAR TONEY Physician Instructions: Reason For Exam: sickle cell Primary care physician: GENERAL CLERK Hospitalization Condition: Stable Exam - Constitutional Vitals: Temp Pulse Resp BP Pulse Ox 98.3 F 66 18 126/74 100 10/22/17 08:28 10/22/17 08:28 10/22/17 08:28 10/22/17 08:28 10/22/17 08:28 Plan Follow up with: EDGAR TONEY DO [Staff Physician] - 7 Days PRIMARY CARE, [Primary Care Provider] - 7 Days Prescriptions: Sennosides Tab [Senokot] 17.2 mg PO QHS #30 tablet Folic Acid [Folvite] 1 mg PO QDAY #30 tablet Oxycodone HCl [Roxicodone] 30 mg PO Q4H PRN #18 tab PRN Reason: Pain , Severe (7-10)
== END 2017-10-22 17:30 | disposition home or self-care (01) | DRG 812 ==
LOC: ED 22:41 → 3A 10-20 04:39
PROVIDERS: ADMIT Internal Medicine; ATTEND Internal Medicine
DX: D57.00 Hb-SS disease with crisis, unspecified (principal); Z88.8 Allergy status to other drugs, medicaments and biological substances; Z87.01 Personal history of pneumonia (recurrent); E86.0 Dehydration
CPT/HCPCS: 36415; 71045; 80048; 80053; 81001; 83615; 85025; 85045; 96361; 96365; 96375; J1170; J1200; J1650; J1885; J2405; J7030

== ENCOUNTER 2017-10-31 10:22 | Emergency (ER) | payer SELFPAY ==
[2017-10-31] MEDS ORDERED: D5NS 0.2% 1,000 ML IV SCH (11:00)
[2017-10-31 11:03] LABS: Basophils % (Auto) 0.6 % (0.0-1.8); Eosinophils % (Auto) 0.4 % (0.0-4.3); Hematocrit 36.6 % (35.5-45.6); Hemoglobin 12.9 gm/dl (11.8-15.2); Lymphocytes # (Auto) 2.8 K/mm3 (1.2-5.4); Lymphocytes % (Auto) 38.1 % (13.4-35.0); Mean Corpuscular HGB Conc 35 % (32-34); Mean Corpuscular Hemoglobin 27 pg (28-32); Mean Corpuscular Volume 76 fl (84-94); Monocytes # (Auto) 0.7 K/mm3 (0.0-0.8); Platelet Count 308 K/mm3 (140-440); Red Blood Count 4.82 M/mm3 (3.65-5.03); Red Cell Distribution Width 17.6 % (13.2-15.2)
[2017-10-31] MEDS ORDERED: DILAUDID IV ONE ×4 (14:22→16:23)
[2017-10-31] MEDS ORDERED: BENADRYL IV ONE ×2 (14:22→17:53)
[2017-10-31] MEDS ORDERED: ZOFRAN IV ONE (14:22)
--- NOTE | 2017-10-31 14:26 | Emergency Department Report ---
Stephania Doc - Documentation Documentation: 22-year-old male with a history of sickle cell SC presents to the hospital complaining of pain secondary to crisis for 2 days. Patient complains of sharp stabbing pains in his lower chest and throbbing pain to his collar bone and bilateral arms rated 10/10 in intensity. Patient was recently admitted here for sickle cell crisis October 20 until the . He was discharged with oxycodone 30 mg every 4hr and folic acid. Patient ran out of oxycodone last week. He denies cough, fever, shortness of breath, nausea, vomiting, or diaphoresis. He has had chest pain with this crisis in the past. He does not currently have a mexican food maker since he is waiting for his disability to be approved. Dr. Qureshi consulted during recent admission. last hemoglobin 10.8 on October 20. Labs reviewed H&H normal slight elevation of the sickle cell and no leukocytosis Chest x-ray ordered D51/2 NS, Dilaudid, Zofran, and Benadryl ordered Midlevel to evaluate
--- NOTE | 2017-10-31 15:34 | Emergency Department Report ---
ED General Adult HPI - General Chief complaint: Sickle Cell Crisis Stated complaint: SICKLE CELL Time Seen by Provider: 10/31/17 14:15 Source: patient Mode of arrival: Ambulatory Limitations: No Limitations - History of Present Illness Initial comments: 22-year-old male past medical history sickle cell disease presents with complaint of bilateral arm and lower chest discomfort for 2 days. Patient states that his symptoms are typical of his sickle cell disease. Patient is awake alert and oriented 3. Fully lucid. Denies shortness of breath. Onset/Timin -: days(s) Location: upper extremity, lower extremity Severity scale (0 -10): 10 Quality: aching Consistency: intermittent Improves with: none Worsens with: none Associated Symptoms: denies other symptoms Treatments Prior to Arrival: other (patient has been on narcotic pain medication ) - Related Data Previous Rx's Medication Instructions Recorded Last Taken Type Folic Acid [Folvite] 1 mg PO QDAY #30 tablet 10/22/17 Unknown Rx Oxycodone HCl [Roxicodone TAB] 15 mg PO Q6H PRN #10 tablet 10/31/17 Unknown Rx Oxycodone HCl [Roxicodone] 30 mg PO Q4H PRN #18 tab 10/31/17 Unknown Rx Allergies Allergy/AdvReac Type Severity Reaction Status Date / Time amoxicillin [From Augmentin] Allergy Hives Verified 08/28/17 21:55 cefprozil [From Cefzil] Allergy Hives Verified 08/28/17 21:55 clavulanic acid Allergy Hives Verified 08/28/17 21:55 [From Augmentin] promethazine [From Phenergan] Allergy Hives Verified 08/28/17 21:55 ED Review of Systems ROS: Stated complaint: SICKLE CELL Other details as noted in HPI Constitutional: denies: chills Eyes: denies: eye pain, eye discharge, vision change ENT: denies: ear pain, throat pain Respiratory: denies: shortness of breath, wheezing Cardiovascular: denies: chest pain, palpitations Endocrine: no symptoms reported Gastrointestinal: denies: abdominal pain, nausea, diarrhea Genitourinary: denies: urgency, dysuria Musculoskeletal: denies: back pain, joint swelling, arthralgia Skin: denies: rash, lesions Neurological: denies: headache, weakness, paresthesias Psychiatric: denies: anxiety, depression Hematological/Lymphatic: denies: easy bleeding, easy bruising ED Past Medical Hx - Past Medical History Previous Medical History?: Yes Hx Congestive Heart Failure: No Hx Diabetes: No Hx Sickle Cell Disease: Yes Hx Asthma: No Hx COPD: No Hx HIV: No Additional medical history: Pneumonia - Surgical History Past Surgical History?: Yes Additional Surgical History: RT Knee, Broncossopy - Social History Smoking Status: Never Smoker Substance Use Type: Alcohol - Medications Home Medications: Home Medications Medication Instructions Recorded Confirmed Last Taken Type Folic Acid [Folvite] 1 mg PO QDAY #30 tablet 10/22/17 10/31/17 Unknown Rx Oxycodone HCl [Roxicodone TAB] 15 mg PO Q6H PRN #10 tablet 10/31/17 Unknown Rx Oxycodone HCl [Roxicodone] 30 mg PO Q4H PRN #18 tab 10/31/17 Unknown Rx ED Physical Exam - General Limitations: No Limitations General appearance: alert, in no apparent distress - Head Head exam: Present: atraumatic, normocephalic - Eye Eye exam: Present: normal appearance, PERRL, EOMI - ENT ENT exam: Present: mucous membranes moist - Neck Neck exam: Present: normal inspection - Respiratory Respiratory exam: Present: normal lung sounds bilaterally. Absent: respiratory distress - Cardiovascular Cardiovascular Exam: Present: regular rate, normal rhythm. Absent: systolic murmur, diastolic murmur, rubs, gallop - GI/Abdominal GI/Abdominal exam: Present: soft, normal bowel sounds - Rectal Rectal exam: Present: deferred - Extremities Exam Extremities exam: Present: normal inspection - Back Exam Back exam: Present: normal inspection - Neurological Exam Neurological exam: Present: alert, oriented X3 - Psychiatric Psychiatric exam: Present: normal affect, normal mood - Skin Skin exam: Present: warm, dry, intact, normal color. Absent: rash ED Course Vital Signs 10/31/17 10/31/17 10/31/17 10:26 16:28 19:04 Temperature 98.3 F Pulse Rate 100 H Respiratory 22 18 18 Rate Blood Pressure 117/75 Blood Pressure [Right] O2 Sat by Pulse 100 Oximetry 10/31/17 19:55 Temperature Pulse Rate 88 Respiratory Rate Blood Pressure Blood Pressure 136/82 [Right] O2 Sat by Pulse Oximetry ED Medical Decision Making - Lab Data Result diagrams: 10/31/17 10:43 - Medical Decision Making A/P: Sickle cell crisis 1-I discussed case with Dr. Burgos and Dr. Herrera. Patient states that his pain is uncontrolled despite 2 doses of IV Dilaudid and Benadryl and IV fluid resuscitation. Labs and x-ray unremarkable. Patient is not anemic at this time. 2-patient's was evaluated by Dr. Herrera. Offered admission. Patient was demanding IV narcotics. I advised him that we have to time dosing of narcotics to mitigate any respiratory suppression or potential overdose. Patient became irate at me telling him this. Patient was offered admission for IV fluid resuscitation. Patient signed out AGAINST MEDICAL ADVICE Critical care attestation.: If time is entered above; I have spent that time in minutes in the direct care of this critically ill patient, excluding procedure time. ED Disposition Clinical Impression: Sickle cell crisis, Left against medical advice Disposition: DC-07 LEFT AGAINST MED ADVICE Is pt being admited?: No Does the pt Need Aspirin: No Condition: Stable Instructions: Sickle Cell Crisis (ED) Prescriptions: Oxycodone HCl [Roxicodone TAB] 15 mg PO Q6H PRN #10 tablet PRN Reason: Pain Oxycodone HCl [Roxicodone] 30 mg PO Q4H PRN #18 tab PRN Reason: Pain , Severe (7-10) Referrals: [facility] [Provider Group] - 3-5 Days [facility] [Outside] - 3-5 Days Forms: AMA Form
--- NOTE | 2017-10-31 16:03 | XRay Report ---
FINAL REPORT PROCEDURE: PA and lateral chest x-ray TECHNIQUE: PA and lateral chest radiographs were obtained. CPT 71647 HISTORY: hx of sickle cell , some lower chest pain COMPARISON: Prior chest x-ray 10/19/2017 FINDINGS: Heart: Upper normal size. Mediastinum/Vessels: Normal. Lungs/Pleural space: Clear.. Bony thorax: No acute osseous abnormality. Other: IMPRESSION: Heart size upper normal. No acute abnormalities are identified..
[2017-10-31] MEDS ORDERED: DILAUDID IV NR (17:00)
[2017-10-31] MEDS ORDERED: NACL 0.9% 500 ML 500 ML IV ONE (17:18)
[2017-10-31] MEDS ORDERED: NACL 0.9% 1000 ML 1,000 ML ONE (17:32)
[2017-10-31] MEDS ORDERED: NACL 0.9% 1000 ML 1,000 ML IV ONE (18:58)
--- NOTE | 2017-10-31 18:58 | History and Physical Report ---
History of Present Illness Chief complaint: Pain History of present illness: 22 YO Male presents to ED for evaluation. Pt complains of pain out of proportion to exam and interview. Pt medically optimized and back to usual state of health. Pt CBC reviewed, as well as retic count. Pt treated with IVF resuscitation. Pt discharged home and instructed to f/u pcp 1wk, hematology prn. Past History Past Surgical History: No surgical history Social history: single Family history: other (sc trait) Medications and Allergies Allergies Allergy/AdvReac Type Severity Reaction Status Date / Time amoxicillin [From Augmentin] Allergy Hives Verified 08/28/17 21:55 cefprozil [From Cefzil] Allergy Hives Verified 08/28/17 21:55 clavulanic acid Allergy Hives Verified 08/28/17 21:55 [From Augmentin] promethazine [From Phenergan] Allergy Hives Verified 08/28/17 21:55 Home Medications Medication Instructions Recorded Confirmed Last Taken Type Folic Acid [Folvite] 1 mg PO QDAY #30 tablet 10/22/17 10/31/17 Unknown Rx Oxycodone HCl [Roxicodone TAB] 15 mg PO Q6H PRN #10 tablet 10/31/17 Unknown Rx Oxycodone HCl [Roxicodone] 30 mg PO Q4H PRN #18 tab 10/31/17 Unknown Rx Active Meds: Active Medications Dextrose/Sodium Chloride (D5ns 0.2%) 1,000 mls @ 250 mls/hr IV DIRECT GREG Sodium Chloride (Nacl 0.9% 1000 Ml) 1,000 mls @ 999 mls/hr IV BOLUS ONE Stop: 10/31/17 19:58 Review of Systems Constitutional: chronic pain, no weight loss, no weight gain, no fever, no chills Ears, nose, mouth and throat: no ear pain, no ear discharge, no tinnitis, no decreased hearing, no nose pain, no nasal congestion, no nasal discharge Cardiovascular: no chest pain, no orthopnea, no palpitations, no rapid/ irregular heart beat, no edema, no syncope Respiratory: no cough with sputum, no excessive sputum, no hemoptysis, no shortness of breath Gastrointestinal: no nausea, no vomiting, no diarrhea, no constipation Genitourinary Male: no dysuria, no hematuria, no flank pain Rectal: no pain, no incontinence, no bleeding Musculoskeletal: no neck stiffness, no shooting arm pain Integumentary: no rash, no pruritis, no redness Neurological: no head injury, no transient paralysis, no paralysis, no weakness Psychiatric: no anxiety, no memory loss, no sleep disturbances, no insomnia Endocrine: no heat intolerance, no excessive thirst, no polydipsia, no polyuria , no nocturia Hematologic/Lymphatic: no easy bruising, no easy bleeding Allergic/Immunologic: no wheezing Exam - Constitutional Vitals: Temp Pulse Resp BP Pulse Ox 98.3 F 100 H 18 117/75 100 10/31/17 10:26 10/31/17 10:26 10/31/17 16:28 10/31/17 10:26 10/31/17 10:26 General appearance: Present: no acute distress, well-nourished - EENT Eyes: Present: PERRL ENT: hearing intact, clear oral mucosa - Neck Neck: Present: supple, normal ROM - Respiratory Respiratory effort: normal Respiratory: bilateral: CTA - Cardiovascular Heart Sounds: Present: S1 & S2. Absent: rub, click - Extremities Extremities: pulses symmetrical, No edema Peripheral Pulses: within normal limits - Abdominal General gastrointestinal: Present: soft, non-tender, non-distended, normal bowel sounds Male genitourinary: Present: normal - Integumentary Integumentary: Present: clear, warm, dry - Musculoskeletal Musculoskeletal: gait normal, strength equal bilaterally - Psychiatric Psychiatric: appropriate mood/affect, intact judgment & insight - Neurologic Neurologic: CNII-XII intact, moves all extremities Results - Labs CBC & Chem 7: 10/31/17 10:43 Labs: Abnormal lab results 10/31/17 Range/Units 10:43 MCV 76 L (84-94) fl MCH 27 L (28-32) pg MCHC 35 H (32-34) % RDW 17.6 H (13.2-15.2) % Lymph % (Auto) 38.1 H (13.4-35.0) % [place] % (Auto) 10.0 H (0.0-7.3) % Percent Retic 2.89 H (0.78-2.58) % Assessment and Plan - Patient Problems (1) Sickle cell crisis Status: Acute Plan to address problem: IVF resuscitation, Pt complains of pain out of proportion to exam and interview. Pt discharged home and instructed to f/u pcp 1wk, hematology prn
[2017-10-31 19:56] VITALS: BP 136/82
== END 2017-10-31 19:54 | disposition left against medical advice (07) ==
LOC: ED 10:22
DX: D57.00 Hb-SS disease with crisis, unspecified (principal)
CPT/HCPCS: 36415; 71046; 85025; 85045; 96361; 96374; 96375; 96376; 99284; J1170; J1200; J2405; J7030

== ENCOUNTER 2017-10-31 20:35 | Emergency (ER) | payer SELFPAY ==
[2017-10-31 20:50] VITALS: BP 124/67
[2017-10-31] MEDS ORDERED: ASPIRIN PO ONE (21:13)
[2017-10-31 21:54] LABS: Hematocrit 34.2 % (35.5-45.6); Hemoglobin 11.9 gm/dl (11.8-15.2); Mean Corpuscular HGB Conc 35 % (32-34); Mean Corpuscular Hemoglobin 27 pg (28-32); Mean Corpuscular Volume 76 fl (84-94); Platelet Count 306 K/mm3 (140-440); Red Blood Count 4.48 M/mm3 (3.65-5.03); Red Cell Distribution Width 17.8 % (13.2-15.2)
[2017-10-31 22:00] LABS: BUN/Creatinine Ratio 16; Blood Urea Nitrogen 11 mg/dL (9-20); Calcium 8.7 mg/dL (8.4-10.2); Hemolysis Index 154
[2017-10-31 22:41] LABS: Anisocytosis Few; Basophils % (Manual) 0 % (0.0-1.8); Eosinophils % (Manual) 0 % (0.0-4.3); Total Cells Counted 100
[2017-10-31 22:42] LABS: Platelet Estimate Consistent w Auto; Target Cells Rare
--- NOTE | 2017-10-31 23:06 | Emergency Department Report ---
ED General Adult HPI - General Chief complaint: Chest Pain Stated complaint: SICKCELL PAIN Time Seen by Provider: 10/31/17 22:54 Source: patient Mode of arrival: Ambulatory Limitations: No Limitations - History of Present Illness Initial comments: Patient is 22 years old male with history of sickle cell disease. This is his second visit to the ER today. Patient initially gets 2 mg of Dilaudid, Benadryl and IV fluids. Patient reported back that his pain is not improving. Patient is asking for Dilaudid and Benadryl. Patient denied any history of fever, cough or shortness of breath. He stated that he has been having generalized arm and leg pain. I reviewed patient previous medical records and obtain narcotics prescription list which includes numerous prescription form different places. I believe this patient is suffering from substance abuse specifically oxycodone and Dilaudid. I discussed with the patient the options for referral to an medicine clinic patient refused and walked out. - Related Data Previous Rx's Medication Instructions Recorded Last Taken Type Folic Acid [Folvite] 1 mg PO QDAY #30 tablet 10/22/17 Unknown Rx Oxycodone HCl [Roxicodone TAB] 15 mg PO Q6H PRN #10 tablet 10/31/17 Unknown Rx Oxycodone HCl [Roxicodone] 30 mg PO Q4H PRN #18 tab 10/31/17 Unknown Rx Allergies Allergy/AdvReac Type Severity Reaction Status Date / Time amoxicillin [From Augmentin] Allergy Hives Verified 08/28/17 21:55 cefprozil [From Cefzil] Allergy Hives Verified 08/28/17 21:55 clavulanic acid Allergy Hives Verified 08/28/17 21:55 [From Augmentin] promethazine [From Phenergan] Allergy Hives Verified 08/28/17 21:55 ED Review of Systems ROS: Stated complaint: SICKCELL PAIN Other details as noted in HPI Comment: All other systems reviewed and negative Constitutional: denies: chills, fever Cardiovascular: denies: chest pain, palpitations Gastrointestinal: denies: abdominal pain, nausea, diarrhea, constipation, hematemesis Musculoskeletal: back pain, arthralgia, myalgia Neurological: denies: headache, weakness, numbness, paresthesias ED Past Medical Hx - Past Medical History Hx Congestive Heart Failure: No Hx Diabetes: No Hx Sickle Cell Disease: Yes Hx Asthma: No Hx COPD: No Hx HIV: No Additional medical history: Pneumonia - Surgical History Additional Surgical History: RT Knee, Broncossopy - Social History Smoking Status: Never Smoker Substance Use Type: None - Medications Home Medications: Home Medications Medication Instructions Recorded Confirmed Last Taken Type Folic Acid [Folvite] 1 mg PO QDAY #30 tablet 10/22/17 10/31/17 Unknown Rx Oxycodone HCl [Roxicodone TAB] 15 mg PO Q6H PRN #10 tablet 10/31/17 Unknown Rx Oxycodone HCl [Roxicodone] 30 mg PO Q4H PRN #18 tab 10/31/17 Unknown Rx ED Physical Exam - General Limitations: No Limitations General appearance: alert, in no apparent distress - Head Head exam: Present: atraumatic, normocephalic, normal inspection - Eye Eye exam: Present: normal appearance, PERRL - ENT ENT exam: Present: normal exam, normal orophraynx, mucous membranes moist - Neck Neck exam: Present: normal inspection, full ROM. Absent: tenderness, meningismus, lymphadenopathy, thyromegaly - Respiratory Respiratory exam: Present: normal lung sounds bilaterally. Absent: respiratory distress, wheezes, rales, rhonchi, accessory muscle use, decreased breath sounds , prolonged expiratory - Cardiovascular Cardiovascular Exam: Present: regular rate, normal rhythm, normal heart sounds - GI/Abdominal GI/Abdominal exam: Present: soft, normal bowel sounds. Absent: distended, tenderness, guarding, rebound, rigid, organomegaly, mass, bruit, pulsatile mass , hernia - Extremities Exam Extremities exam: Present: normal inspection, full ROM, normal capillary refill - Back Exam Back exam: Present: normal inspection, full ROM. Absent: CVA tenderness (R), CVA tenderness (L), muscle spasm, paraspinal tenderness, vertebral tenderness - Neurological Exam Neurological exam: Present: alert, oriented X3, CN II-XII intact - Skin Skin exam: Present: warm, intact, normal color ED Course Vital Signs 10/31/17 10/31/17 20:45 21:02 Temperature 98.2 F 98.2 F Pulse Rate 74 74 Respiratory 16 20 Rate Blood Pressure 124/67 124/67 O2 Sat by Pulse 97 97 Oximetry ED Medical Decision Making - Lab Data Result diagrams: 10/31/17 21:29 10/31/17 21:29 Critical care attestation.: If time is entered above; I have spent that time in minutes in the direct care of this critically ill patient, excluding procedure time. ED Disposition Clinical Impression: Sickle cell disease, Drug abuse and dependence Disposition: DC-01 TO HOME OR SELFCARE Is pt being admited?: No Condition: Stable Referrals: LISA SHIRLEY MD [Primary Care Provider] - 3-5 Days
== END 2017-10-31 23:15 | disposition home or self-care (01) ==
LOC: ED 20:35
DX: D57.1 Sickle-cell disease without crisis (principal); F19.10 Other psychoactive substance abuse, uncomplicated; Z88.1 Allergy status to other antibiotic agents; Z88.8 Allergy status to other drugs, medicaments and biological substances
CPT/HCPCS: 36415; 80048; 84484; 85007; 85025; 85045; 93005; 93010; 99284

== ENCOUNTER 2017-12-12 13:08 | Emergency (ER) | payer SELFPAY ==
[2017-12-12] MEDS ORDERED: ZOFRAN IV ONE (13:23)
--- NOTE | 2017-12-12 13:23 | Emergency Department Report ---
Blank Doc - Documentation Documentation: Patient is 22 years old male history of sickle cell disease presented in a sickle cell crisis that started today with acute chest pain and generalized pain also. Patient denied any fever, nausea or vomiting. Patient will need IV fluids, IV medications blood work and chest x-ray and possible admission. Patient will be more to our main ED.
[2017-12-12] MEDS ORDERED: SUBLIMAZE IV NR (13:24)
[2017-12-12] MEDS ORDERED: NACL 0.9% 1000 ML 1,000 ML IV ONE (13:24)
[2017-12-12] MEDS ORDERED: SUBLIMAZE IV ONE (13:45)
[2017-12-12] MEDS ORDERED: DILAUDID IV ONE ×5 (13:58→17:00)
[2017-12-12] MEDS ORDERED: KETALAR IV ONE (13:58)
[2017-12-12] MEDS ORDERED: TORADOL IV ONE (13:58)
[2017-12-12] MEDS ORDERED: XYLOCAINE CARDIAC IV ONE ×2 (13:59→15:00)
--- NOTE | 2017-12-12 13:59 | Emergency Department Report ---
ED General Adult HPI - General Chief complaint: Pain General Stated complaint: SICKLE CELL CRISIS Time Seen by Provider: 12/12/17 13:18 Source: patient, RN notes reviewed, old records reviewed Mode of arrival: Ambulatory Limitations: No Limitations - History of Present Illness Initial comments: This is a 22-year-old male who is unknown to this provider previously. The patient has a past medical History sickle cell disease. He presents to the ER with a complaint of bilateral chest wall pain and sternal pain, after playing basketball. He reports like he is feeling like his sickle cell crisis is "acting up." This pain is sharp, burning, achy, increases with palpation, decreases hydromorphone typically He further endorses that there is no leg pain, no leg swelling, no long bony tenderness, no urinary symptoms, no cough, and he reports that he feels like his symptoms today were most likely incited by dehydration, and playing basketball out in the hot sun. -: Gradual Location: chest Radiation: non-radiation Quality: burning, stabbing, aching, constant Improves with: medication Worsens with: movement Associated Symptoms: malaise. denies: confusion, cough, diaphoresis, fever/ chills, headaches, loss of appetite, nausea/vomiting, rash, seizure, shortness of breath, syncope, weakness - Related Data Previous Rx's Medication Instructions Recorded Last Taken Type Folic Acid [Folvite] 1 mg PO QDAY #30 tablet 10/22/17 Unknown Rx Oxycodone HCl [Roxicodone TAB] 15 mg PO Q6H PRN #10 tablet 10/31/17 Unknown Rx Oxycodone HCl [Roxicodone] 30 mg PO Q4H PRN #18 tab 10/31/17 Unknown Rx Acetaminophen [Tylenol Arthritis] 650 mg PO Q6HR PRN #30 tablet.er 12/12/17 Unknown Rx Ibuprofen [Motrin] 600 mg PO Q8H PRN #30 tablet 12/12/17 Unknown Rx Ondansetron [Zofran Odt] 4 mg PO Q8HR PRN #20 tab.rapdis 12/12/17 Unknown Rx oxyCODONE [Roxicodone] 5 mg PO Q6HR PRN #15 tablet 12/12/17 Unknown Rx Allergies Allergy/AdvReac Type Severity Reaction Status Date / Time amoxicillin [From Augmentin] Allergy Hives Verified 08/28/17 21:55 cefprozil [From Cefzil] Allergy Hives Verified 08/28/17 21:55 clavulanic acid Allergy Hives Verified 08/28/17 21:55 [From Augmentin] promethazine [From Phenergan] Allergy Hives Verified 08/28/17 21:55 ED Review of Systems ROS: Stated complaint: SICKLE CELL CRISIS Other details as noted in HPI Comment: All other systems reviewed and negative Constitutional: malaise. denies: fever Respiratory: denies: cough Cardiovascular: denies: dyspnea on exertion Genitourinary: denies: dysuria Musculoskeletal: arthralgia, myalgia Neurological: weakness ED Past Medical Hx - Past Medical History Hx Congestive Heart Failure: No Hx Diabetes: No Hx Sickle Cell Disease: Yes Hx Asthma: No Hx COPD: No Hx HIV: No Additional medical history: Pneumonia - Surgical History Past Surgical History?: Yes Additional Surgical History: RT Knee, Broncossopy - Social History Smoking Status: Never Smoker Substance Use Type: None - Medications Home Medications: Home Medications Medication Instructions Recorded Confirmed Last Taken Type Folic Acid [Folvite] 1 mg PO QDAY #30 tablet 10/22/17 10/31/17 Unknown Rx Oxycodone HCl [Roxicodone TAB] 15 mg PO Q6H PRN #10 tablet 10/31/17 Unknown Rx Oxycodone HCl [Roxicodone] 30 mg PO Q4H PRN #18 tab 10/31/17 Unknown Rx Acetaminophen [Tylenol Arthritis] 650 mg PO Q6HR PRN #30 tablet.er 12/12/17 Unknown Rx Ibuprofen [Motrin] 600 mg PO Q8H PRN #30 tablet 12/12/17 Unknown Rx Ondansetron [Zofran Odt] 4 mg PO Q8HR PRN #20 tab.rapdis 12/12/17 Unknown Rx oxyCODONE [Roxicodone] 5 mg PO Q6HR PRN #15 tablet 12/12/17 Unknown Rx ED Physical Exam - General Limitations: No Limitations General appearance: alert, in distress - Head Head exam: Present: atraumatic, normocephalic - Eye Eye exam: Present: normal appearance, EOMI. Absent: nystagmus - ENT ENT exam: Present: normal exam, normal orophraynx, mucous membranes moist, normal external ear exam - Neck Neck exam: Present: normal inspection, full ROM - Respiratory Respiratory exam: Present: normal lung sounds bilaterally, chest wall tenderness. Absent: respiratory distress - Cardiovascular Cardiovascular Exam: Present: regular rate, normal rhythm, normal heart sounds. Absent: bradycardia, tachycardia, irregular rhythm, systolic murmur, diastolic murmur, rubs, gallop - GI/Abdominal GI/Abdominal exam: Present: soft, normal bowel sounds. Absent: distended, tenderness, guarding, rebound, rigid, pulsatile mass - Rectal Rectal exam: Present: deferred - Extremities Exam Extremities exam: Present: normal inspection, full ROM, normal capillary refill , other (there is no palpable cord. There is negative Homans sign. The compartments are soft. 2+ pulses noted in the upper extremities). Absent: tenderness, pedal edema, joint swelling, calf tenderness - Back Exam Back exam: Present: normal inspection, full ROM. Absent: paraspinal tenderness , vertebral tenderness - Neurological Exam Neurological exam: Present: alert, oriented X3, CN II-XII intact, other ( Extraocular movements intact. Tongue midline. No facial droop. Facial sensation intact to light touch in the V1, V2, V3 distribution bilaterally. 5 and 5 strength in 4 extremities.. Sensation is intact to light touch in 4 extremities.). Absent: motor sensory deficit - Psychiatric Psychiatric exam: Present: normal affect, normal mood - Skin Skin exam: Present: warm, dry, intact, normal color. Absent: rash ED Course Vital Signs 12/12/17 12/12/17 12/12/17 13:11 14:18 14:20 Temperature 98.4 F Pulse Rate 84 Respiratory 18 12 Rate Blood Pressure 128/60 O2 Sat by Pulse 100 96 Oximetry - Reevaluation(s) Reevaluation #1: 12/12/17 14:06 Differential diagnosis, including but not limited to: Sickle cell crisis, pneumonia assessment and plan: 22-year-old male who presents with his typical sickle cell crisis after playing basketball in the hot sun. He is afebrile with reassuring vital signs, low risk by well's criteria, and perc negative. He is saturating well and not tachycardic and does not have shortness of breath. He further endorses that his sternal pain and chest wall pain are consistent with prior episodes of sickle cell crises. His pain will be treated aggressively and threw a multi-modal approach, including hydromorphone, ketamine , 0.3 mg/kg IV, as well as IV lidocaine, 1.5 mg/kg IV. We will obtain x-ray of the chest and EKG, and reassess. Reevaluation #2: 12/12/17 15:55 X-ray of the chest is negative. EKG is unchanged from prior. Patient given lidocaine, hydromorphone, ketorolac, ketamine. He is still in pain, and will be given another dose of hydromorphone. He is also written for a third dose of hydromorphone. His laboratory studies are reviewed. Patient will be discharged to follow up with an outpatient hematology community specialist. 12/12/17 15:55 ED Medical Decision Making - Lab Data Result diagrams: 12/12/17 13:29 12/12/17 13:29 Vital Signs 12/12/17 13:11 Temperature 98.4 F Pulse Rate 84 Respiratory 18 Rate Blood Pressure 128/60 O2 Sat by Pulse 100 Oximetry - EKG Data -: EKG Interpreted by Me EKG shows normal: sinus rhythm, axis, intervals, QRS complexes, ST-T waves - EKG Data When compared to previous EKG there are: no significant change Interpretation: unchanged when compared t - Radiology Data Radiology results: pending, image reviewed interpreted by me: X-ray of the chest, interpreted by me, no acute disease Critical care attestation.: If time is entered above; I have spent that time in minutes in the direct care of this critically ill patient, excluding procedure time. ED Disposition Clinical Impression: Sickle cell crisis Disposition: DC-01 TO HOME OR SELFCARE Is pt being admited?: No Does the pt Need Aspirin: No Condition: Stable Instructions: Sickle Cell Crisis (ED) Additional Instructions: Take medications as directed. Follow-up with a primary care doctor or hematology community specialist within the next 2 weeks. Return to the ER right away with new pain, worsened pain, migration of pain, fevers, chills, lethargy, irritability, projectile vomiting, change in mental status, confusion, inability to tolerate liquid feeds. Prescriptions: Acetaminophen [Tylenol Arthritis] 650 mg PO Q6HR PRN #30 tablet.er PRN Reason: Pain Ibuprofen [Motrin] 600 mg PO Q8H PRN #30 tablet PRN Reason: Pain Ondansetron [Zofran Odt] 4 mg PO Q8HR PRN #20 tab.rapdis PRN Reason: Nausea oxyCODONE [Roxicodone] 5 mg PO Q6HR PRN #15 tablet PRN Reason: Pain Referrals: PRIMARY CARE,MD [Primary Care Provider] - 3-5 Days EDGAR TONEY DO [Staff Physician] - 3-5 Days
[2017-12-12 14:42] LABS: INR 1.01 (0.87-1.13); Partial Thromboplastin Time 22.2 Sec. (24.2-36.6)
[2017-12-12 14:51] LABS: Albumin 4.8 g/dL (3.9-5); BUN/Creatinine Ratio 11; Blood Urea Nitrogen 8 mg/dL (9-20); Calcium 9.6 mg/dL (8.4-10.2); Hemolysis Index 100
[2017-12-12] MEDS ORDERED: KETAMINE HCL IV ONE (15:00)
[2017-12-12] MEDS ORDERED: NACL 0.9% IV ONE (15:00)
[2017-12-12 15:10] LABS: Alanine Aminotransferase 21 units/L (7-56)
[2017-12-12 15:18] LABS: Hematocrit 35.8 % (35.5-45.6); Hemoglobin 12.3 gm/dl (11.8-15.2); Mean Corpuscular HGB Conc 34 % (32-34); Mean Corpuscular Volume 75 fl (84-94); Platelet Count 297 K/mm3 (140-440); Red Blood Count 4.81 M/mm3 (3.65-5.03)
[2017-12-12 15:27] LABS: Mean Corpuscular Hemoglobin 26 pg (28-32); Red Cell Distribution Width 20.7 % (13.2-15.2)
[2017-12-12 16:28] LABS: Basophils % (Manual) 0 % (0.0-1.8); Eosinophils % (Manual) 0 % (0.0-4.3); Total Cells Counted 100
[2017-12-12 16:29] LABS: Anisocytosis 1+
[2017-12-12 16:30] LABS: Hypochromasia 1+
[2017-12-12 16:31] LABS: Platelet Estimate Consistent w Auto; Target Cells 3+
[2017-12-12 18:39] VITALS: BP 116/83
--- NOTE | 2017-12-16 14:17 | XRay Report ---
FINAL REPORT PROCEDURE: XR CHEST 1V AP TECHNIQUE: Chest radiograph anteroposterior view. CPT 77522 HISTORY: chest pain COMPARISON: 10/31/2017 FINDINGS: Heart: Normal. Mediastinum/Vessels: Normal. Lungs/Pleural space: No infiltrate, effusion, or pneumothorax. Bony thorax: No acute osseous abnormality. Life support devices: None. IMPRESSION: No radiographic evidence of acute cardiopulmonary abnormality.
== END 2017-12-12 18:15 | disposition home or self-care (01) ==
LOC: ED 13:08
DX: D57.00 Hb-SS disease with crisis, unspecified (principal); Z88.1 Allergy status to other antibiotic agents; Z88.8 Allergy status to other drugs, medicaments and biological substances
CPT/HCPCS: 36415; 71045; 80053; 82550; 85007; 85025; 85045; 85610; 85730; 93005; 93010; 96374; 96375; 96376; 99284; J1170; J1885; J2001; J2405; J7030

== ENCOUNTER 2018-02-12 10:58 | Emergency (ER) | payer MEDICAID ==
[2018-02-12] MEDS ORDERED: NACL 0.9% 1000 ML 1,000 ML IV ONE ×2 (11:16→13:16)
[2018-02-12] MEDS ORDERED: DILAUDID IV ONE ×3 (11:16→13:08)
--- NOTE | 2018-02-12 11:19 | Emergency Department Report ---
HPI - General Chief Complaint: Pain General Time Seen by Provider: 02/12/18 11:12 - HPI HPI: 22-year-old male presents to the emergency department with complaint of a one to 2 day history of what he believes is a sickle cell pain crisis. He has sharp and cramping pains in the chest, right lateral rib cage and back. He denies any shortness of breath, fever, nausea, vomiting. He tried some Aleve for his symptoms without any relief. No recent travel or sick contacts at home. He he recently moved here from [place] with his father and therefore does not have a primary care physician or retirement manager. No sick contacts at home. ED Past Medical Hx - Past Medical History Hx Congestive Heart Failure: No Hx Diabetes: No Hx Sickle Cell Disease: Yes Hx Asthma: No Hx COPD: No Hx HIV: No Additional medical history: Pneumonia - Surgical History Past Surgical History?: Yes Additional Surgical History: RT Knee, Broncossopy - Social History Smoking Status: Never Smoker Substance Use Type: None - Medications Home Medications: Home Medications Medication Instructions Recorded Confirmed Last Taken Type Folic Acid [Folvite] 1 mg PO QDAY #30 tablet 10/22/17 02/12/18 Unknown Rx oxyCODONE ER (NF) [OxyCONTIN ER 40 mg PO Q12HR #4 tablet 02/12/18 Unknown Rx TAB] ED Review of Systems ROS: Stated complaint: SICKLE CELL/CHEST/RIB/BACK Other details as noted in HPI Comment: All other systems reviewed and negative Constitutional: denies: chills, fever Eyes: denies: eye pain, eye discharge, vision change ENT: denies: ear pain, throat pain Respiratory: denies: cough, shortness of breath, wheezing Cardiovascular: chest pain. denies: palpitations Gastrointestinal: denies: abdominal pain, nausea, diarrhea Genitourinary: denies: urgency, dysuria Musculoskeletal: back pain. denies: arthralgia Skin: denies: rash, lesions Neurological: denies: headache, weakness, paresthesias Physical Exam - Physical Exam Vital Signs: Vital Signs 02/12/18 11:02 Temperature 98.5 F Pulse Rate 83 Respiratory 20 Rate Blood Pressure 130/110 O2 Sat by Pulse 99 Oximetry Physical Exam: GENERAL: The patient is well-developed well-nourished. HENT: Normocephalic. Atraumatic. Patient has moist mucous membranes. EYES: Extraocular motions are intact. Pupils equal reactive to light bilaterally. NECK: Supple. Trachea is midline. CHEST/LUNGS: Clear to auscultation. There is no respiratory distress noted. HEART/CARDIOVASCULAR: Regular. There is no tachycardia. There is no murmur. ABDOMEN: Abdomen is soft, nontender. Patient has normal bowel sounds. There is no abdominal distention. SKIN: Skin is warm and dry. NEURO: The patient is awake, alert, and oriented. The patient is cooperative. The patient has no focal neurologic deficits. The patient has normal speech and gait. MUSCULOSKELETAL: There is no tenderness or deformity. There is no limitation range of motion. There is no evidence of acute injury. BACK: No midline thoracic or lumbar tenderness to palpation, step-off or deformity. ED Course Vital Signs 02/12/18 11:02 Temperature 98.5 F Pulse Rate 83 Respiratory 20 Rate Blood Pressure 130/110 O2 Sat by Pulse 99 Oximetry ED Medical Decision Making - Lab Data Result diagrams: 02/12/18 11:54 02/12/18 11:54 - EKG Data -: EKG Interpreted by Me EKG shows normal: sinus rhythm, axis, intervals, QRS complexes, ST-T waves Rate: normal - EKG Data When compared to previous EKG there are: previous EKG unavailable Interpretation: normal EKG - Radiology Data Radiology results: report reviewed, image reviewed interpreted by me: Chest x-ray does not show any acute process. There are no pleural effusions, obvious pneumonia and there is no pneumothorax. VQ scan is low probability for pulmonary embolism - Medical Decision Making Patient presents with chest pain, back pain and what appears to be a sickle cell pain crisis. His labs are mostly unremarkable as he has a hemoglobin greater than 11 and a reticulocyte count of about 2. He did have a slightly elevated equivocal d-dimer so a VQ scan was done low probability for pulmonary embolism. My plan was for the patient be admitted since he received multiple doses of pain medication and still complained of significant discomfort. However he was seen by the admitting hospitalist, evaluated, and discharged home. It should be noted that I check the patient's prescription monitoring system and he seems to fill a narcotic prescription about every 7-10 days in [place], [place], [place], often going between these 3 states within a few weeks. It should also be noted that the patient was found to have some Roxicodone but yet he says that he only took some Aleve for his discomfort without any relief. - Differential Diagnosis sickle cell pain crisis, chest crisis, fibromyalgia, malingering Critical Care Time: No Critical care attestation.: If time is entered above; I have spent that time in minutes in the direct care of this critically ill patient, excluding procedure time. ED Disposition Clinical Impression: Sickle cell crisis Disposition: 09 OP ADMIT IP TO THIS HOSP Is pt being admited?: Yes Condition: Stable Instructions: Sickle Cell Crisis (ED) Prescriptions: oxyCODONE ER (NF) [OxyCONTIN ER TAB] 40 mg PO Q12HR #4 tablet Referrals: EDGAR TONEY DO [Staff Physician] - 3-5 Days PRIMARY CARE, [Primary Care Provider] - 3-5 Days Time of Disposition: 17:03
[2018-02-12] MEDS ORDERED: BENADRYL IV ONE (11:51)
[2018-02-12 12:08] LABS: Basophils # (Auto) 0.1 K/mm3 (0.0-0.1); Eosinophils # (Auto) 0.1 K/mm3 (0.0-0.4); Eosinophils % (Auto) 0.7 % (0.0-4.3); Monocytes # (Auto) 0.5 K/mm3 (0.0-0.8); Monocytes % (Auto) 6.6 % (0.0-7.3)
[2018-02-12 12:13] LABS: Hematocrit 34.4 % (35.5-45.6); Hemoglobin 11.8 gm/dl (11.8-15.2); Mean Corpuscular Hemoglobin 26 pg (28-32); Mean Corpuscular Volume 76 fl (84-94); Red Blood Count 4.52 M/mm3 (3.65-5.03)
[2018-02-12 12:14] LABS: Basophils % (Auto) 1.7 % (0.0-1.8); Lymphocytes # (Auto) 2.4 K/mm3 (1.2-5.4); Lymphocytes % (Auto) 30.6 % (13.4-35.0); Mean Corpuscular HGB Conc 34 % (32-34); Platelet Count 240 K/mm3 (140-440); Red Cell Distribution Width 18.9 % (13.2-15.2)
[2018-02-12 13:03] LABS: BUN/Creatinine Ratio 13; Blood Urea Nitrogen 8 mg/dL (9-20); Calcium 8.9 mg/dL (8.4-10.2); Hemolysis Index 25
--- NOTE | 2018-02-12 14:25 | XRay Report ---
AP CHEST: HISTORY: chest pain AP view of the chest demonstrates a normal mediastinal and cardiac contour with clear lungs and normal bony and soft tissue structures. IMPRESSION: Unremarkable AP chest.
[2018-02-12 14:32] VITALS: BP 128/91
[2018-02-12] MEDS ORDERED: DILAUDID IV STA (14:46)
--- NOTE | 2018-02-12 14:49 | Event Note ---
Date: 02/12/18 In pain all over Retic count 2.37 Stable Discharge home F/u with Dr Patterson
[2018-02-12] MEDS ORDERED: DILAUDID IV PRN (14:50)
--- NOTE | 2018-02-12 14:52 | Nuclear Medicine Report ---
LUNG SCAN, VENTILATION AND PERFUSION: History: Chest pain, sickle cell crisis. Technique: 5mci of Tc99m MAA was infused for the perfusion images. 15mci XE 133 gas was inhaled for the ventilatory images. Correlation is made with a chest x-ray dated 02/12/18. Findings: Inhalation of Xenon gas demonstrates a normal distribution of the activity throughout both lungs. The wash out phases show no focal retention of activity. After injection of Technetium 99m macroaggregated albumin gamma camera imaging of the lungs in multiple projections demonstrates normal pulmonary contours with a homogeneous distribution of activity. No focal areas of perfusion deficiency are identified. IMPRESSION: Low probability for pulmonary embolus.
== END 2018-02-12 15:25 | disposition home or self-care (01) ==
LOC: ED 10:58
DX: D57.219 Sickle-cell/Hb-C disease with crisis, unspecified (principal); M79.7 Fibromyalgia
CPT/HCPCS: 36415; 71045; 78582; 80048; 84484; 85025; 85045; 85379; 93005; 93010; 96361; 96374; 96375; 96376; 99284; A9540; A9558; J1170; J1200; J7030

== ENCOUNTER 2018-03-14 09:46 | Emergency (ER) | payer MEDICAID ==
[2018-03-14] MEDS ORDERED: DILAUDID IV ONE ×3 (11:27→16:12)
[2018-03-14] MEDS ORDERED: NACL 0.9% 1000 ML 1,000 ML IV ONE ×2 (11:27→11:28)
[2018-03-14] MEDS ORDERED: TORADOL IV ONE (11:27)
--- NOTE | 2018-03-14 11:30 | Emergency Department Report ---
Blank Doc - Documentation Documentation: Patient is a 22-year-old Male with past medical history of sickle cell disease who is presenting with sternal left-sided chest pain as well as back discomfort. Patient's pain has been going on for the past 24-48 hours. Patient denies any fever cough congestion. Patient states he has had similar pain with sickle cell crisis in the past. Patient states he does have some pleuritic discomfort currently as well. Focused physical exam patient is in some moderate distress secondary to pain. Patient's lungs are clear to auscultation heart tones are within normal limits. Patient had labs drawn including a d-dimer. The patient was given meds for symptomatic relief and IV fluids. Patient will be reassessed.
[2018-03-14 12:05] LABS: Hematocrit 32.4 % (35.5-45.6); Hemoglobin 11.6 gm/dl (11.8-15.2); Mean Corpuscular HGB Conc 36 % (32-34); Mean Corpuscular Hemoglobin 26 pg (28-32); Mean Corpuscular Volume 74 fl (84-94); Platelet Count 253 K/mm3 (140-440); Red Cell Distribution Width 18.3 % (13.2-15.2)
--- NOTE | 2018-03-14 12:28 | XRay Report ---
Chest 2 views: History: Chest pain. Findings: Normal cardiomediastinal silhouette. Trachea is midline. No consolidation, pneumothorax or pleural effusion. Impression: No acute cardiopulmonary findings.
[2018-03-14 12:55] LABS: BUN/Creatinine Ratio 10; Blood Urea Nitrogen 7 mg/dL (9-20); Calcium 9.2 mg/dL (8.4-10.2); Hemolysis Index 7
[2018-03-14 13:02] LABS: Anisocytosis 1+; Basophils % (Manual) 0 % (0.0-1.8); Eosinophils % (Manual) 0 % (0.0-4.3); Platelet Estimate Consistent w Auto; Poikilocytosis 1+; Total Cells Counted 100
[2018-03-14 13:03] LABS: Target Cells 2+
[2018-03-14] MEDS ORDERED: DILAUDID ONE ×2 (14:21→14:30)
--- NOTE | 2018-03-14 15:59 | Nuclear Medicine Report ---
LUNG SCAN, VENTILATION AND PERFUSION: Elevated d-dimer, chest pain, sickle cell disease. Inhalation of Xenon gas demonstrates a normal distribution of the activity throughout both lungs. The wash out phases show no focal retention of activity. After injection of Technetium 99m macroaggregated albumin gamma camera imaging of the lungs in multiple projections demonstrates normal pulmonary contours with a homogeneous distribution of activity. No focal areas of perfusion deficiency are identified. No interval change compared to prior examination on February 12, 2018. IMPRESSION: Normal study.
--- NOTE | 2018-03-14 16:10 | Emergency Department Report ---
ED General Adult HPI - General Chief complaint: Sickle Cell Crisis Stated complaint: SICKLE CELL/CHEST BACK PAIN Time Seen by Provider: 03/14/18 11:21 Source: patient Mode of arrival: Ambulatory Limitations: No Limitations - History of Present Illness Initial comments: Patient is a 22-year-old Male with past medical history of sickle cell disease who is presenting with sternal left-sided chest pain as well as back discomfort. Patient's pain has been going on for the past 24-48 hours. Patient denies any fever cough congestion. Patient states he has had similar pain with sickle cell crisis in the past. Patient states he does have some pleuritic discomfort currently as well. Severity scale (0 -10): 8 Quality: stabbing, aching Consistency: constant - Related Data Previous Rx's Medication Instructions Recorded Last Taken Type Folic Acid [Folvite] 1 mg PO QDAY #30 tablet 10/22/17 Unknown Rx oxyCODONE ER (NF) [OxyCONTIN ER 40 mg PO Q12HR #4 tablet 02/12/18 Unknown Rx TAB] Ketorolac [Toradol] 10 mg PO Q6H PRN #20 tablet 03/14/18 Unknown Rx oxyCODONE /ACETAMINOPHEN [Percocet 1 tab PO Q6HR PRN #12 tablet 03/14/18 Unknown Rx 5/325] Allergies Allergy/AdvReac Type Severity Reaction Status Date / Time amoxicillin [From Augmentin] Allergy Hives Verified 03/14/18 10:11 cefprozil [From Cefzil] Allergy Hives Verified 03/14/18 10:11 clavulanic acid Allergy Hives Verified 03/14/18 10:11 [From Augmentin] promethazine [From Phenergan] Allergy Hives Verified 03/14/18 10:11 ED Review of Systems ROS: Stated complaint: SICKLE CELL/CHEST BACK PAIN Other details as noted in HPI Comment: All other systems reviewed and negative ED Past Medical Hx - Past Medical History Previous Medical History?: Yes Hx Congestive Heart Failure: No Hx Diabetes: No Hx Sickle Cell Disease: Yes Hx Asthma: No Hx COPD: No Hx HIV: No Additional medical history: Pneumonia - Surgical History Past Surgical History?: Yes Additional Surgical History: RT Knee, Broncossopy - Social History Smoking Status: Never Smoker - Medications Home Medications: Home Medications Medication Instructions Recorded Confirmed Last Taken Type Folic Acid [Folvite] 1 mg PO QDAY #30 tablet 10/22/17 02/12/18 Unknown Rx oxyCODONE ER (NF) [OxyCONTIN ER 40 mg PO Q12HR #4 tablet 02/12/18 Unknown Rx TAB] Ketorolac [Toradol] 10 mg PO Q6H PRN #20 tablet 03/14/18 Unknown Rx oxyCODONE /ACETAMINOPHEN [Percocet 1 tab PO Q6HR PRN #12 tablet 03/14/18 Unknown Rx 5/325] ED Physical Exam - General Limitations: No Limitations General appearance: alert, in distress - Head Head exam: Present: atraumatic, normocephalic - Eye Eye exam: Present: normal appearance - ENT ENT exam: Present: mucous membranes moist - Neck Neck exam: Present: normal inspection - Respiratory Respiratory exam: Present: normal lung sounds bilaterally. Absent: respiratory distress, wheezes, rales - Cardiovascular Cardiovascular Exam: Present: regular rate, normal rhythm. Absent: systolic murmur, diastolic murmur, rubs, gallop - GI/Abdominal GI/Abdominal exam: Present: soft, normal bowel sounds. Absent: distended, tenderness, guarding, rebound - Rectal Rectal exam: Present: deferred - Extremities Exam Extremities exam: Present: normal inspection - Back Exam Back exam: Present: normal inspection - Neurological Exam Neurological exam: Present: alert, oriented X3 - Psychiatric Psychiatric exam: Present: normal affect, normal mood - Skin Skin exam: Present: warm, dry, intact, normal color. Absent: rash ED Course Vital Signs 03/14/18 03/14/18 10:07 13:13 Temperature 98.6 F Pulse Rate 76 Respiratory 16 18 Rate Blood Pressure 108/74 O2 Sat by Pulse 100 Oximetry ED Medical Decision Making - Lab Data Result diagrams: 03/14/18 11:31 03/14/18 11:36 Lab Results 03/14/18 03/14/18 03/14/18 Range/Units 11:31 11:36 11:36 WBC 6.6 (4.5-11.0) K/mm3 RBC 4.40 (3.65-5.03) M/mm3 Hgb 11.6 L (11.8-15.2) gm/dl Hct 32.4 L (35.5-45.6) % MCV 74 L (84-94) fl MCH 26 L (28-32) pg MCHC 36 H (32-34) % RDW 18.3 H (13.2-15.2) % Plt Count 253 (140-440) K/mm3 Lymph % (Auto) Exhibitions And Collections Manager Add Manual Diff Complete Total Counted 100 Seg Neuts % (Manual) 56.0 (40.0-70.0) % Band Neutrophils % 0 % Lymphocytes % (Manual) 32.0 (13.4-35.0) % Reactive Lymphs % (Man) 0 % Monocytes % (Manual) 12.0 H (0.0-7.3) % Eosinophils % (Manual) 0 (0.0-4.3) % Basophils % (Manual) 0 (0.0-1.8) % Metamyelocytes % 0 % Myelocytes % 0 % Promyelocytes % 0 % Blast Cells % 0 % Nucleated RBC % Not Reportable Seg Neutrophils # Man 3.7 (1.8-7.7) K/mm3 Band Neutrophils # 0.0 K/mm3 Lymphocytes # (Manual) 2.1 (1.2-5.4) K/mm3 Abs React Lymphs (Man) 0.0 K/mm3 Monocytes # (Manual) 0.8 (0.0-0.8) K/mm3 Eosinophils # (Manual) 0.0 (0.0-0.4) K/mm3 Basophils # (Manual) 0.0 (0.0-0.1) K/mm3 Metamyelocytes # 0.0 K/mm3 Myelocytes # 0.0 K/mm3 Promyelocytes # 0.0 K/mm3 Blast Cells # 0.0 K/mm3 WBC Morphology Not Reportable Hypersegmented Neuts Not Reportable Hyposegmented Neuts Not Reportable Hypogranular Neuts Not Reportable Smudge Cells Not Reportable Toxic Granulation Not Reportable Toxic Vacuolation Not Reportable Dohle Bodies Not Reportable Pelger-Huet Anomaly Not Reportable Demond Rods Not Reportable Platelet Estimate Consistent w auto Clumped Platelets Not Reportable Plt Clumps, EDTA Not Reportable Large Platelets Not Reportable Giant Platelets Not Reportable Platelet Satelliting Not Reportable Plt Morphology Comment Not Reportable RBC Morphology Not Reportable Dimorphic RBCs Not Reportable Polychromasia Not Reportable Hypochromasia Not Reportable Poikilocytosis 1+ Anisocytosis 1+ Microcytosis Few Macrocytosis Not Reportable Spherocytes Not Reportable Pappenheimer Bodies Not Reportable Sickle Cells Not Reportable Target Cells 2+ Tear Drop Cells Not Reportable Ovalocytes Not Reportable Helmet Cells Not Reportable Garcia-[place] Bodies Not Reportable Taylor Rings Not Reportable [place] Cells Not Reportable Bite Cells Not Reportable Crenated Cell Not Reportable Elliptocytes Not Reportable Acanthocytes (Spur) Not Reportable Rouleaux Not Reportable Hemoglobin C Crystals Not Reportable Schistocytes Not Reportable Malaria parasites Not Reportable Percent Retic 2.37 (0.78-2.58) % [place] Bodies Not Reportable Hem Pathologist Commnt No D-Dimer 409.09 H (0-234) ng/mlDDU Sodium 145 (137-145) mmol/L Potassium 4.1 (3.6-5.0) mmol/L Chloride 105.1 (98-107) mmol/L Carbon Dioxide 22 (22-30) mmol/L Anion Gap 22 mmol/L BUN 7 L (9-20) mg/dL Creatinine 0.7 L (0.8-1.5) mg/dL Estimated GFR > 60 ml/min BUN/Creatinine Ratio 10 % Glucose 89 (75-100) mg/dL Calcium 9.2 (8.4-10.2) mg/dL Troponin T < 0.010 (0.00-0.029) ng/mL - Medical Decision Making Patient complains of pleuritic-type chest discomfort and back discomfort. The patient's d-dimer was slightly elevated however VQ scan is a normal study and rules out a pulmonary embolus. Patient is given several doses of Dilaudid and pain is improved patient be given a prescription for Percocet and will be discharged home. Critical care attestation.: If time is entered above; I have spent that time in minutes in the direct care of this critically ill patient, excluding procedure time. ED Disposition Clinical Impression: Sickle cell crisis Disposition: DC-01 TO HOME OR SELFCARE Is pt being admited?: No Does the pt Need Aspirin: No Condition: Stable Referrals: PRIMARY CARE, [Primary Care Provider] - 3-5 Days Time of Disposition: 16:11
[2018-03-14 16:36] VITALS: BP 118/74
== END 2018-03-14 16:34 | disposition home or self-care (01) ==
LOC: ED 09:46
DX: D57.00 Hb-SS disease with crisis, unspecified (principal); Z88.1 Allergy status to other antibiotic agents; Z88.8 Allergy status to other drugs, medicaments and biological substances; Z87.01 Personal history of pneumonia (recurrent)
CPT/HCPCS: 36415; 71046; 78582; 80048; 84484; 85007; 85025; 85045; 85379; 93005; 93010; 96374; 96375; 96376; 99284; A9540; A9558; J1170; J1885; J7030

== ENCOUNTER 2018-03-24 03:14 | Emergency (ER) | payer MEDICAID, OTHER ==
[2018-03-24] MEDS ORDERED: D5NS 0.2% 1,000 ML IV SCH (04:00)
[2018-03-24 04:12] LABS: Basophils # (Auto) 0.1 K/mm3 (0.0-0.1); Basophils % (Auto) 1.2 % (0.0-1.8); Eosinophils # (Auto) 0.1 K/mm3 (0.0-0.4); Eosinophils % (Auto) 0.9 % (0.0-4.3); Hematocrit 33.8 % (35.5-45.6); Hemoglobin 11.4 gm/dl (11.8-15.2); Lymphocytes # (Auto) 3.8 K/mm3 (1.2-5.4); Lymphocytes % (Auto) 40.1 % (13.4-35.0); Mean Corpuscular HGB Conc 34 % (32-34); Mean Corpuscular Volume 75 fl (84-94); Monocytes % (Auto) 10.6 % (0.0-7.3); Platelet Count 243 K/mm3 (140-440); Red Cell Distribution Width 19.1 % (13.2-15.2)
[2018-03-24 04:13] LABS: Mean Corpuscular Hemoglobin 25 pg (28-32)
[2018-03-24 04:29] LABS: BUN/Creatinine Ratio 10; Blood Urea Nitrogen 8 mg/dL (9-20); Calcium 9.3 mg/dL (8.4-10.2); Hemolysis Index 4
[2018-03-24 06:25] VITALS: BP 105/52
--- NOTE | 2018-03-24 06:29 | Emergency Department Report ---
ED General Adult HPI - General Chief complaint: Sickle Cell Crisis Stated complaint: SICKLE CELL Time Seen by Provider: 03/24/18 06:25 Source: patient Mode of arrival: Stretcher Limitations: No Limitations - History of Present Illness Initial comments: This is a patient that is declining to make eye contact or give a history. He is hurting all over. He is gyrating on the gurney. He is speaking in a very low voice stating that he does not have pain medicine at home. He has been to the emergency department multiple times recently with normal reticulocyte count. 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 He does not appear to be in visible distress. He has recently been here a few times in February. He was suspected of opioid abuse in October of this year: Patient is 22 years old male with history of sickle cell disease. This is his second visit to the ER today. Patient initially gets 2 mg of Dilaudid, Benadryl and IV fluids. Patient reported back that his pain is not improving. Patient is asking for Dilaudid and Benadryl. Patient denied any history of fever, cough or shortness of breath. He stated that he has been having generalized arm and leg pain. I reviewed patient previous medical records and obtain narcotics prescription list which includes numerous prescription form different places. I believe this patient is suffering from substance abuse specifically oxycodone and Dilaudid. I discussed with the patient the options for referral to an medicine clinic patient refused and walked out. Additionally the patient presented here with similar complaints that the end of February. He had a negative VQ scan at that time. Not complaining of fever or cough. He made some mention of chest pain since yesterday morning similar to the previous visit. He is not describing chest pain to me now. -: Gradual Associated Symptoms: denies other symptoms (difficult to obtain history) - Related Data Previous Rx's Medication Instructions Recorded Last Taken Type Folic Acid [Folvite] 1 mg PO QDAY #30 tablet 10/22/17 Unknown Rx oxyCODONE ER (NF) [OxyCONTIN ER 40 mg PO Q12HR #4 tablet 02/12/18 Unknown Rx TAB] Ketorolac [Toradol] 10 mg PO Q6H PRN #20 tablet 03/14/18 Unknown Rx oxyCODONE /ACETAMINOPHEN [Percocet 1 tab PO Q6HR PRN #12 tablet 03/14/18 Unknown Rx 5/325] HYDROcodone/ACETAMINOPHEN [[place] 1 each PO Q6H PRN #7 tablet 03/24/18 Unknown Rx 5-325 Tablet] Allergies Allergy/AdvReac Type Severity Reaction Status Date / Time amoxicillin [From Augmentin] Allergy Hives Verified 03/14/18 10:11 cefprozil [From Cefzil] Allergy Hives Verified 03/14/18 10:11 clavulanic acid Allergy Hives Verified 03/14/18 10:11 [From Augmentin] promethazine [From Phenergan] Allergy Hives Verified 03/14/18 10:11 ED Review of Systems ROS: Stated complaint: SICKLE CELL Other details as noted in HPI Comment: Unobtainable due to pts medical conditions ED Past Medical Hx - Past Medical History Hx Congestive Heart Failure: No Hx Diabetes: No Hx Sickle Cell Disease: Yes Hx Asthma: No Hx COPD: No Hx HIV: No Additional medical history: Pneumonia - Surgical History Additional Surgical History: RT Knee, Broncossopy - Social History Smoking Status: Never Smoker Substance Use Type: None - Medications Home Medications: Home Medications Medication Instructions Recorded Confirmed Last Taken Type Folic Acid [Folvite] 1 mg PO QDAY #30 tablet 10/22/17 02/12/18 Unknown Rx oxyCODONE ER (NF) [OxyCONTIN ER 40 mg PO Q12HR #4 tablet 02/12/18 Unknown Rx TAB] Ketorolac [Toradol] 10 mg PO Q6H PRN #20 tablet 03/14/18 Unknown Rx oxyCODONE /ACETAMINOPHEN [Percocet 1 tab PO Q6HR PRN #12 tablet 03/14/18 Unknown Rx 5/325] HYDROcodone/ACETAMINOPHEN [[place] 1 each PO Q6H PRN #7 tablet 03/24/18 Unknown Rx 5-325 Tablet] ED Physical Exam - General Limitations: Other General appearance: alert, in no apparent distress - Head Head exam: Present: atraumatic, normocephalic - Eye Eye exam: Present: normal appearance, PERRL, EOMI. Absent: scleral icterus - ENT ENT exam: Present: mucous membranes moist - Neck Neck exam: Present: normal inspection - Respiratory Respiratory exam: Present: normal lung sounds bilaterally. Absent: respiratory distress - Cardiovascular Cardiovascular Exam: Present: regular rate, normal rhythm. Absent: systolic murmur, diastolic murmur, rubs, gallop - GI/Abdominal GI/Abdominal exam: Present: soft, normal bowel sounds. Absent: distended, tenderness, guarding, rebound, rigid - Rectal Rectal exam: Present: deferred - Extremities Exam Extremities exam: Present: normal inspection - Back Exam Back exam: Present: normal inspection - Neurological Exam Neurological exam: Present: alert, oriented X3, CN II-XII intact. Absent: motor sensory deficit - Psychiatric Psychiatric exam: Present: normal mood, flat affect, other (inappropriate behavior) - Skin Skin exam: Present: warm, dry, intact, normal color. Absent: rash ED Course Vital Signs 03/24/18 03/24/18 03:21 06:23 Temperature 98.2 F 98 F Pulse Rate 72 76 Respiratory 18 18 Rate Blood Pressure 109/58 Blood Pressure 105/52 [Left] O2 Sat by Pulse 98 99 Oximetry - Reevaluation(s) Reevaluation #1: Patient has a low reticulocyte count and stable hemoglobin. I don't think there is a medical basis for sickle cell crisis here. He has presented both will times recently. He is failing outpatient pain management. He will be given oral pain medication and discharged back to his miter grinder operator her primary care physician. 03/24/18 06:41 ED Medical Decision Making - Lab Data Result diagrams: 03/24/18 03:48 03/24/18 03:48 Laboratory Results - last 24 hr 03/24/18 03/24/18 03:48 03:48 WBC 9.4 RBC 4.50 Hgb 11.4 L Hct 33.8 L MCV 75 L MCH 25 L MCHC 34 RDW 19.1 H Plt Count 243 Lymph % (Auto) 40.1 H [place] % (Auto) 10.6 H Eos % (Auto) 0.9 Baso % (Auto) 1.2 Lymph # 3.8 [place] # 1.0 H Eos # 0.1 Baso # 0.1 Seg Neutrophils % 47.2 Seg Neutrophils # 4.4 Percent Retic 2.49 Sodium 139 Potassium 3.5 L Chloride 100.3 Carbon Dioxide 25 Anion Gap 17 BUN 8 L Creatinine 0.8 Estimated GFR > 60 BUN/Creatinine Ratio 10 Glucose 97 Calcium 9.3 Troponin T < 0.010 - EKG Data -: EKG Interpreted by Me EKG shows normal: sinus rhythm, axis, intervals, QRS complexes, ST-T waves Rate: normal - EKG Data Interpretation: no acute changes - Medical Decision Making Sickle cell disease with pain Drug-seeking behavior Critical care attestation.: If time is entered above; I have spent that time in minutes in the direct care of this critically ill patient, excluding procedure time. ED Disposition Clinical Impression: Sickle-cell disease with pain Chronic pain Qualifiers: Chronic pain type: other chronic pain Qualified Code(s): G89.29 - Other chronic pain Disposition: TO HOME OR SELFCARE Is pt being admited?: No Does the pt Need Aspirin: No Condition: Stable Instructions: Sickle Cell Crisis (ED), Narcotic Pain Management (ED), Opioid Withdrawal (ED) Additional Instructions: Pain management must occur with your miter grinder operator or primary care physician. See either one of them as soon as possible. Increase fluids. Prescriptions: HYDROcodone/ACETAMINOPHEN [[place] 5-325 Tablet] 1 each PO Q6H PRN #7 tablet PRN Reason: Pain , Severe (7-10) Referrals: usual, miter grinder operator [Other] - [facility], [Primary Care Provider] - [facility] Time of Disposition: 06:44
[2018-03-24] MEDS ORDERED: NORCO 5/325 PO ONE (06:49)
== END 2018-03-24 07:00 | disposition home or self-care (01) ==
LOC: ED 03:14
DX: D57.219 Sickle-cell/Hb-C disease with crisis, unspecified (principal); Z88.1 Allergy status to other antibiotic agents; Z88.5 Allergy status to narcotic agent; Z87.01 Personal history of pneumonia (recurrent)
CPT/HCPCS: 36415; 80048; 84484; 85025; 85045; 93005; 93010; 99284

== ENCOUNTER 2018-03-24 07:10 | Emergency (ER) | payer MEDICAID ==
[2018-03-24 07:20] VITALS: BP 109/51
== END 2018-03-24 09:10 | disposition left against medical advice (07) ==
LOC: ED 07:10
DX: D57.219 Sickle-cell/Hb-C disease with crisis, unspecified (principal); R07.81 Pleurodynia; Z53.21 Procedure and treatment not carried out due to patient leaving prior to being seen by health care provider

== ENCOUNTER 2018-07-21 15:01 | Emergency (ER) | payer MEDICAID ==
[2018-07-21 15:27] VITALS: BP 103/62
[2018-07-21 15:57] LABS: Hematocrit 34.7 % (35.5-45.6); Hemoglobin 11.6 gm/dl (11.8-15.2); Mean Corpuscular HGB Conc 34 % (32-34); Mean Corpuscular Volume 74 fl (84-94); Platelet Count 343 K/mm3 (140-440); Red Blood Count 4.68 M/mm3 (3.65-5.03); Red Cell Distribution Width 18.2 % (13.2-15.2)
[2018-07-21 16:14] LABS: Alanine Aminotransferase 15 units/L (7-56); Albumin 4.7 g/dL (3.9-5); BUN/Creatinine Ratio 11; Blood Urea Nitrogen 8 mg/dL (9-20); Calcium 9.1 mg/dL (8.4-10.2); Hemolysis Index 88
[2018-07-21] MEDS ORDERED: TYLENOL PO ONE (16:33)
--- NOTE | 2018-07-21 16:33 | Emergency Department Report ---
ED General Adult HPI - General Chief complaint: Abdominal Pain Stated complaint: SICKLE CELL (L) SIDE PAIN Time Seen by Provider: 07/21/18 16:17 Source: patient Mode of arrival: Ambulatory Limitations: No Limitations - History of Present Illness Initial comments: Patient is 23 years old male with history of sickle cell disease with multiple ER visits for pain medicine. Patient stated that his symptoms started this morning with back pain. patient denied any fever,nausea or vomiting. -: This morning - Related Data Previous Rx's Medication Instructions Recorded Last Taken Type Oxycodone HCl [Roxicodone TAB] 15 mg PO Q6H PRN #12 tablet 07/15/18 Unknown Rx RX: Folic Acid [Folvite] 1 mg PO QDAY #30 tablet 07/15/18 Unknown Rx Allergies Allergy/AdvReac Type Severity Reaction Status Date / Time amoxicillin [From Augmentin] Allergy Hives Verified 03/14/18 10:11 cefprozil [From Cefzil] Allergy Hives Verified 03/14/18 10:11 clavulanic acid Allergy Hives Verified 03/14/18 10:11 [From Augmentin] morphine Allergy Hives Verified 07/13/18 22:11 promethazine [From Phenergan] Allergy Hives Verified 03/14/18 10:11 ED Review of Systems ROS: Stated complaint: SICKLE CELL (L) SIDE PAIN Other details as noted in HPI Comment: All other systems reviewed and negative Constitutional: denies: chills, fever ENT: denies: ear pain Cardiovascular: denies: chest pain, palpitations, dyspnea on exertion Gastrointestinal: denies: abdominal pain, nausea, diarrhea, constipation, hematemesis, hematochezia Neurological: denies: headache, weakness, numbness, paresthesias, confusion, abnormal gait ED Past Medical Hx - Past Medical History Previous Medical History?: Yes Hx Congestive Heart Failure: No Hx Diabetes: No Hx Sickle Cell Disease: Yes Hx Asthma: No Hx COPD: No Hx HIV: No Additional medical history: Pneumonia - Surgical History Past Surgical History?: Yes Additional Surgical History: RT Knee, Broncossopy - Social History Smoking Status: Never Smoker Substance Use Type: None - Medications Home Medications: Home Medications Medication Instructions Recorded Confirmed Last Taken Type Oxycodone HCl [Roxicodone TAB] 15 mg PO Q6H PRN #12 tablet 07/15/18 Unknown Rx RX: Folic Acid [Folvite] 1 mg PO QDAY #30 tablet 07/15/18 Unknown Rx ED Physical Exam - General Limitations: No Limitations General appearance: alert, in no apparent distress - Head Head exam: Present: atraumatic, normocephalic, normal inspection - Eye Eye exam: Present: normal appearance - ENT ENT exam: Present: normal exam, normal orophraynx, mucous membranes moist - Neck Neck exam: Present: normal inspection, full ROM. Absent: tenderness, meningismus, lymphadenopathy, thyromegaly - Respiratory Respiratory exam: Present: normal lung sounds bilaterally - Cardiovascular Cardiovascular Exam: Present: regular rate, normal rhythm, normal heart sounds - GI/Abdominal GI/Abdominal exam: Present: soft, normal bowel sounds. Absent: distended, tenderness, guarding, rebound, rigid - Extremities Exam Extremities exam: Present: normal inspection, full ROM, normal capillary refill - Back Exam Back exam: Present: normal inspection, full ROM. Absent: tenderness, CVA tenderness (R), CVA tenderness (L), muscle spasm, paraspinal tenderness, vertebral tenderness - Neurological Exam Neurological exam: Present: alert, oriented X3, CN II-XII intact, normal gait, reflexes normal - Skin Skin exam: Present: warm, intact, normal color ED Course Vital Signs 07/21/18 15:10 Temperature 98.1 F Pulse Rate 84 Respiratory 16 Rate Blood Pressure 103/62 O2 Sat by Pulse 100 Oximetry ED Medical Decision Making - Lab Data Result diagrams: 07/21/18 15:45 07/21/18 15:45 - Medical Decision Making I reviewed Mr. Alexandre previous medical records. Patient with obvious drug- seeking behavior. Patient reticulocyte counts is 2.6%. vital signs stable. No significant change from previous episodes. I reviewed his narcotic prescriptions record from [facility] web site. Patient has more than 30 prescriptions of oxycodone, from multiple providers, different pharmacies. Allen wu refused toradol and asked for dilaudid. I advised patient to follow up with pain clinic. Critical care attestation.: If time is entered above; I have spent that time in minutes in the direct care of this critically ill patient, excluding procedure time. ED Disposition Clinical Impression: Sickle cell disease, Drug-seeking behavior Disposition: TO HOME OR SELFCARE Is pt being admited?: No Condition: Stable Instructions: Chronic Pain (ED), Narcotic Abuse (ED) Referrals: PRIMARY CARE, [Primary Care Provider] - 3-5 Days
[2018-07-21 16:46] LABS: Bilirubin,Urine NEG (Negative); Blood,Urine NEG (Negative); Color,Urine Yellow (Yellow); Mucus,Urine FEW /HPF; Protein,Urine <15 mg/dL mg/dL (Negative); RBC,Urine < 1.0 /HPF (0.0-6.0); Urobilinogen,Urine < 2.0 mg/dL (<2.0); WBC,Urine < 1.0 /HPF (0.0-6.0)
[2018-07-21] MEDS ORDERED: TORADOL IM ONE (16:57)
== END 2018-07-21 16:59 | disposition home or self-care (01) ==
LOC: ED 15:01
DX: D57.1 Sickle-cell disease without crisis (principal); Z72.89 Other problems related to lifestyle; Z88.1 Allergy status to other antibiotic agents; Z87.01 Personal history of pneumonia (recurrent); Z88.6 Allergy status to analgesic agent; Z88.8 Allergy status to other drugs, medicaments and biological substances
CPT/HCPCS: 36415; 80053; 81001; 85027; 85045; 99283

== ENCOUNTER 2019-07-09 04:26 | Emergency (ER) | payer MEDICAID ==
[2019-07-09 04:46] VITALS: BP 112/69
== END 2019-07-09 06:20 | disposition left against medical advice (07) ==
LOC: ED 04:26
DX: R07.81 Pleurodynia (principal); Z53.21 Procedure and treatment not carried out due to patient leaving prior to being seen by health care provider

== ENCOUNTER 2019-07-24 16:22 | Emergency (ER) | payer MEDICAID ==
[2019-07-24] MEDS ORDERED: SODIUM CHLORIDE 0.9% 1000 ML 1,000 ML IV ONE ×2 (18:16→21:29)
[2019-07-24] MEDS ORDERED: ONDANSETRON 4 MG/2 ML INJ IV ONE (18:17)
[2019-07-24] MEDS ORDERED: HYDROmorphone 1 MG/1 ML INJ IV ONE ×2 (18:17→21:46)
[2019-07-24] MEDS ORDERED: KETOROLAC 30 MG/1 ML INJ IV ONE (18:17)
--- NOTE | 2019-07-24 18:19 | Event Note ---
ED Screening Note Date of service: 07/24/19 Time: 18:18 ED Screening Note: 24 y/o male comes in for sickle cell crisis. Pain started this morning. No nausea or vomiting. Pain is in his chest. This initial assessment/diagnostic orders/clinical plan/treatment(s) is/are subject to change based on patients health status, clinical progression and re- assessment by fellow clinical providers in the ED. Further treatment and workup at subsequent clinical providers discretion. Patient/guardian urged not to elope from the ED as their condition may be serious if not clinically assessed and managed. Initial orders include:
--- NOTE | 2019-07-24 18:37 | XRay Report ---
CHEST 2 VIEWS INDICATION: chest pain. COMPARISON: 03/14/2018 and 07/13/2018 FINDINGS: Support devices: None. Heart: Within normal limits. Lungs: No acute air space or interstitial disease. Pleura: No significant pleural effusion. No pneumothorax. Additional findings: None. IMPRESSION: 1. No acute findings. Signer Name: Floyd Mathur MD Signed: 07/24/2019 6:33 PM Workstation Name: [id number]
[2019-07-24 19:00] LABS: Hematocrit 34.5 % (35.5-45.6); Hemoglobin 12.3 gm/dl (11.8-15.2); Mean Corpuscular HGB Conc 36 % (32-34); Mean Corpuscular Volume 73 fl (84-94); Platelet Count 327 K/mm3 (140-440); Red Blood Count 4.72 M/mm3 (3.65-5.03); Red Cell Distribution Width 17.8 % (13.2-15.2)
[2019-07-24 19:21] LABS: Alanine Aminotransferase 9 units/L (7-56); Albumin 4.5 g/dL (3.9-5); BUN/Creatinine Ratio 13; Blood Urea Nitrogen 8 mg/dL (9-20); Calcium 9.5 mg/dL (8.4-10.2); Hemolysis Index 8
[2019-07-24] MEDS ORDERED: HYDROmorphone 1 MG/1 ML INJ ONE (20:30)
[2019-07-24] MEDS ORDERED: KETOROLAC 30 MG/1 ML INJ ONE (20:30)
[2019-07-24] MEDS ORDERED: ONDANSETRON 4 MG/2 ML INJ ONE (20:30)
[2019-07-24] MEDS ORDERED: fentaNYL 100 MCG/2 ML INJ IV ONE (21:37)
--- NOTE | 2019-07-24 23:06 | Emergency Department Report ---
<SAI ZAVALA - Last Filed: 07/25/19 00:19> ED Chest Pain HPI - General Chief Complaint: Chest Pain Stated Complaint: CHEST PAIN Time Seen by Provider: 07/24/19 18:14 - Related Data Previous Rx's Medication Instructions Recorded Last Taken Type Folic Acid [Folvite] 1 mg PO QDAY #30 tablet 07/15/18 Unknown Rx Oxycodone HCl [Roxicodone TAB] 15 mg PO Q6H PRN #12 tablet 07/15/18 Unknown Rx Allergies Allergy/AdvReac Type Severity Reaction Status Date / Time amoxicillin [From Augmentin] Allergy Hives Verified 03/14/18 10:11 cefprozil [From Cefzil] Allergy Hives Verified 03/14/18 10:11 clavulanic acid Allergy Hives Verified 03/14/18 10:11 [From Augmentin] morphine Allergy Hives Verified 07/13/18 22:11 promethazine [From Phenergan] Allergy Hives Verified 03/14/18 10:11 ED Past Medical Hx - Medications Home Medications: Home Medications Medication Instructions Recorded Confirmed Last Taken Type Folic Acid [Folvite] 1 mg PO QDAY #30 tablet 07/15/18 Unknown Rx Oxycodone HCl [Roxicodone TAB] 15 mg PO Q6H PRN #12 tablet 07/15/18 Unknown Rx ED Course - Reevaluation(s) Reevaluation #1: 07/25/19 00:22 pt requesting additional pain meds prior to d/c dilaudid 1mg and toradol 15mg provided normal retic, h/h, trop neg x 2 with normal ekg, elevated ddimer with low prob vq exam. pt will be d/tim home ED Medical Decision Making - Lab Data Result diagrams: 07/24/19 18:41 07/24/19 18:41 - Radiology Data interpreted by me: NUCLEAR MEDICINE LUNG VENTILATION AND PERFUSION IMAGING INDICATION / CLINICAL INFORMATION: Chest pain and elevated d-dimer.. TECHNIQUE: Dose / Agent / Route: 29.9 mCi xenon-133 gas was inhaled and 3.0 mCi technetium 99m-MAA was administered intravenously. COMPARISON: Chest radiograph performed today. FINDINGS: No significant ventilatory or perfusion abnormality is seen. The accompanying chest radiograph is clear. IMPRESSION: Normal study. There is a very low probability for acute PTE. ED Disposition Clinical Impression: Sickle cell crisis, Dehydration Chest pain Qualifiers: Chest pain type: unspecified Qualified Code(s): R07.9 - Chest pain, unspecified Disposition: - TO HOME OR SELFCARE Is pt being admited?: No Does the pt Need Aspirin: No Condition: Stable Instructions: Chest Pain (ED), Sickle Cell Crisis (ED) Additional Instructions: I have given you a referral for some local primary care physicians and clinics. I am giving you a referral for a local race relations adviser, Dr. Munguia, to follow-up regarding your sickle cell anemia. I have also given you a referral for a local book store associate, Dr. Hinson, to follow up regarding your chest pains. Please return to the emergency Department with any worsening of your symptoms or any acute distress. Referrals: PRIMARY CAREMD [Primary Care Provider] - 2-3 Days REAGAN ALVES MD [Staff Physician] - 2-3 Days ALEX MUNGUIA MD [Staff Physician] - 2-3 Days [facility] [Outside] - 2-3 Days Time of Disposition: 00:24 <EMI WATERS S - Last Filed: 07/25/19 15:00> ED Chest Pain HPI - General Source: patient Mode of arrival: Ambulatory Limitations: No Limitations - History of Present Illness Initial Comments: 24-year-old -[place] male presents to the emergency department with a complaint of some generalized chest pain that he describes as a sickle cell pain crisis. He denies any fever, nausea, vomiting, shortness of breath. The patient denies any tobacco or illicit drug use. He says he is not currently on any Folic Acid, hydroxyurea and does not have any pain medication and therefore has not taken anything for her symptoms prior to presentation. Patient says that he is currently living in [facility]. He says that he does not have any PCP or race relations adviser. Severity scale (0 -10): 10 Heart Score - HEART Score History: Slightly suspicious EKG: Normal Age: < 45 Risk factors: No known risk factors Troponin: < normal limit HEART Score: 0 - Critical Actions Critical Actions: 0-3 pts:0.9-1.7%risk of adverse cardiac event.Candidate for discharge ED Review of Systems ROS: Stated complaint: CHEST PAIN Other details as noted in HPI Comment: All other systems reviewed and negative Constitutional: denies: chills, fever Eyes: denies: eye pain, vision change ENT: denies: ear pain, throat pain Respiratory: denies: cough, shortness of breath Cardiovascular: chest pain. denies: palpitations Gastrointestinal: denies: abdominal pain, vomiting Genitourinary: denies: dysuria, discharge Musculoskeletal: denies: joint swelling, arthralgia Skin: denies: rash, lesions Neurological: denies: headache, weakness ED Past Medical Hx - Past Medical History Hx Congestive Heart Failure: No Hx Diabetes: No Hx Sickle Cell Disease: Yes Hx Asthma: No Hx COPD: No Hx HIV: No Additional medical history: Pneumonia - Surgical History Additional Surgical History: RT Knee, Broncossopy - Social History Smoking Status: Never Smoker Substance Use Type: None ED Physical Exam - General Limitations: No Limitations - Other Other exam information: GENERAL: The patient is well-developed well-nourished. HEENT: Normocephalic. Atraumatic. Patient has moist mucous membranes. EYES: Extraocular motions are intact. NECK: Supple. Trachea is midline. CHEST/LUNGS: Clear to auscultation. There is no respiratory distress noted. HEART/CARDIOVASCULAR: Regular. There is no tachycardia. There is no murmur. ABDOMEN: Abdomen is soft, nontender. Patient has normal bowel sounds. There is no abdominal distention. SKIN:Skin is warm and dry. . NEURO: The patient is awake, alert, and oriented. The patient is cooperative. The patient has no focal neurologic deficits. Normal speech. MUSCULOSKELETAL: There is no tenderness or deformity. There is no limitation range of motion. There is no evidence of acute injury. ED Course Vital Signs 07/24/19 07/24/19 07/24/19 18:02 20:40 20:42 Temperature 98.7 F 98.3 F Pulse Rate 97 H 80 Respiratory 20 18 18 Rate Blood Pressure 102/62 Blood Pressure 106/76 [Left] O2 Sat by Pulse 99 99 Oximetry 07/24/19 07/24/19 07/24/19 20:43 21:12 21:13 Temperature Pulse Rate Respiratory 18 18 18 Rate Blood Pressure Blood Pressure [Left] O2 Sat by Pulse Oximetry 07/24/19 07/24/19 07/24/19 21:40 21:55 22:00 Temperature Pulse Rate 82 75 Respiratory 18 18 15 Rate Blood Pressure 102/67 Blood Pressure 117/72 [Left] O2 Sat by Pulse 100 97 Oximetry 07/24/19 07/24/19 07/24/19 22:15 22:25 22:31 Temperature Pulse Rate 72 77 Respiratory 13 18 12 Rate Blood Pressure 104/67 104/67 Blood Pressure [Left] O2 Sat by Pulse 99 99 Oximetry 07/24/19 07/24/19 07/25/19 22:45 23:31 00:01 Temperature Pulse Rate 72 80 68 Respiratory 12 12 10 L Rate Blood Pressure 117/62 117/62 117/62 Blood Pressure [Left] O2 Sat by Pulse 98 97 99 Oximetry 07/25/19 07/25/19 07/25/19 00:31 00:32 00:33 Temperature Pulse Rate 70 Respiratory 14 18 18 Rate Blood Pressure 117/62 Blood Pressure [Left] O2 Sat by Pulse 100 Oximetry 07/25/19 07/25/19 00:45 01:19 Temperature Pulse Rate Respiratory 18 Rate Blood Pressure 119/90 Blood Pressure [Left] O2 Sat by Pulse Oximetry ED score - Ed Score Age > 65: (0) No Aspirin use within the Past 7 Days: (0) No 3 or more CAD Risk Factors: (0) No 2 or more Angina events in past 24 hrs: (0) No Known CAD with more than 50% Stenosis: (0) No Elevated Cardiac Markers: (0) No ST Deviation Greater than 0.5mm: (0) No ED Score: 0 ED Medical Decision Making - Lab Data Result diagrams: 07/24/19 18:41 07/24/19 18:41 - EKG Data -: EKG Interpreted by Id EKG shows normal: sinus rhythm, axis, intervals, QRS complexes, ST-T waves Rate: normal - EKG Data When compared to previous EKG there are: no significant change Interpretation: normal EKG, unchanged when compared t - Radiology Data Radiology results: image reviewed interpreted by me: Chest x-ray does not show any pleural effusions, pneumonia, pneumothorax, focal consolidation, or any other acute process. - Medical Decision Making This patient presents to the emergency department with a complaint of some generalized chest pain that he says is a sickle cell pain crisis. EKG was done that does not show any ST elevation AR, ischemia or dysrhythmia. Chest x-ray does not show any pneumonia, pleural effusions, or any other acute process. Patient's labs are mostly unremarkable. He has a hemoglobin of 12 and a reticulocyte count of about 2 that does not appear consistent with a sickle cell crisis. Vital signs are stable throughout his ED course including being afebrile. This, along with a clear chest x-ray, does not appear consistent with a chest crisis. The patient did have a slightly elevated an equivocal d-dimer and will have a VQ scan done. He has been given some pain medication and IV fluid resuscitation. The patient does display some drug-seeking behavior. He has consistently coming out of the room asking specifically for Dilaudid, and is asking for increasing pain medication within minutes of receiving some pain medication. I looked at his prescription monitoring including [place], [place], [place], [place] and the patient has 16 prescriptions from 15 different providers within the last 1 year. The patient had 5 different prescribers from 5 different cities in 3 different states over the past 1 month. The patient is waiting for his ventilation/perfusion scan and a second troponin. If these are negative the patient will be discharged home to follow up with primary care, hematology, and he will be given a referral for cardiology. - Differential Diagnosis sickle cell pain crisis, chest crisis, AR, PE, malingering Critical Care Time: No Critical care attestation.: If time is entered above; I have spent that time in minutes in the direct care of this critically ill patient, excluding procedure time. ED Disposition Is pt being admited?: No Time of Disposition: 23:14
--- NOTE | 2019-07-24 23:40 | Nuclear Medicine Report ---
NUCLEAR MEDICINE LUNG VENTILATION AND PERFUSION IMAGING INDICATION / CLINICAL INFORMATION: Chest pain and elevated d-dimer.. TECHNIQUE: Dose / Agent / Route: 29.9 mCi xenon-133 gas was inhaled and 3.0 mCi technetium 99m-MAA was administe red intravenously. COMPARISON: Chest radiograph performed today. FINDINGS: No significant ventilatory or perfusion abnormality is seen. The accompanying chest radiograph is dede ar. IMPRESSION: Normal study. There is a very low probability for acute PTE. Signer Name: Dakota Carrillo MD Signed: 07/24/2019 11:35 PM Workstation Name: [id number]
[2019-07-25] MEDS ORDERED: HYDROmorphone 1 MG/1 ML INJ IV ONE (00:21)
[2019-07-25] MEDS ORDERED: KETOROLAC 30 MG/1 ML INJ IV ONE (00:21)
[2019-07-25 01:22] VITALS: BP 119/90
== END 2019-07-25 00:45 | disposition home or self-care (01) ==
LOC: ED 16:22
DX: D57.00 Hb-SS disease with crisis, unspecified (principal); E86.0 Dehydration; Z79.899 Other long term (current) drug therapy; Z88.1 Allergy status to other antibiotic agents; Z88.8 Allergy status to other drugs, medicaments and biological substances; Z98.890 Other specified postprocedural states
CPT/HCPCS: 36415; 71046; 78582; 80053; 84484; 85027; 85045; 85379; 93005; 93010; 96361; 96374; 96375; 96376; 99284; A9540; A9558; J1170; J1885; J2405; J3010; J7030

== ENCOUNTER 2019-09-01 10:39 | Emergency (ER) | payer MEDICAID ==
--- NOTE | 2019-09-01 12:12 | Event Note ---
{null, ED Screening Note ED Screening Note: sickle cell crisis, pain in the chest and back states he only takes folic acid no fever no n/v/d no SOB does not have a PCP no other pmhx allergy: phenergan, augmentin, morphine last admitted for sickle cell a month ago last transfused in 2017 This initial assessment/diagnostic orders/clinical plan/treatment(s) is/are subject to change based on patients health status, clinical progression and re- assessment by fellow clinical providers in the ED. Further treatment and workup at subsequent clinical providers discretion. Patient/guardian urged not to elope from the ED as their condition may be serious if not clinically assessed and managed. Initial orders include: CP protocol }
--- NOTE | 2019-09-01 12:50 | XRay Report ---
{null, CHEST 2 VIEWS INDICATION: CP. COMPARISON: 07/24/2019 FINDINGS: Support devices: None. Heart: Within normal limits. Lungs: No acute air space or interstitial disease. Pleura: No significant pleural effusion. No pneumothorax. Additional findings: None. IMPRESSION: 1. No acute findings. Signer Name: Floyd Mathur MD Signed: 09/01/2019 12:45 PM Workstation Name: [id number] }
[2019-09-01 13:09] LABS: Basophils % (Auto) 0.8 % (0.0-1.8); Eosinophils % (Auto) 0.4 % (0.0-4.3); Hematocrit 35.9 % (35.5-45.6); Hemoglobin 12.3 gm/dl (11.8-15.2); Lymphocytes # (Auto) 0.9 K/mm3 (1.2-5.4); Lymphocytes % (Auto) 18.1 % (13.4-35.0); Mean Corpuscular HGB Conc 34 % (32-34); Mean Corpuscular Volume 72 fl (84-94); Monocytes # (Auto) 0.5 K/mm3 (0.0-0.8); Platelet Count 290 K/mm3 (140-440); Red Blood Count 4.98 M/mm3 (3.65-5.03); Red Cell Distribution Width 19.2 % (13.2-15.2)
[2019-09-01 13:32] LABS: Alanine Aminotransferase 10 units/L (7-56); Albumin 4.7 g/dL (3.9-5); BUN/Creatinine Ratio 13; Blood Urea Nitrogen 8 mg/dL (9-20); Calcium 9.9 mg/dL (8.4-10.2); Hemolysis Index 2
--- NOTE | 2019-09-01 14:12 | Emergency Department Report ---
{null, ED General Adult HPI - General Chief complaint: Sickle Cell Crisis Stated complaint: SICKLE CELL CRISIS Time Seen by Provider: 09/01/19 12:10 Source: patient, family Mode of arrival: Ambulatory Limitations: No Limitations - History of Present Illness Initial comments: 24-year-old male with a history of sickle cell disease presents with complaint that he is having a sickle cell crisis. Patient states that since this morning he developed the onset of chest pain in the substernal region. Patient also complains of pains in extremities. Patient complains of pain in his upper back region as well. Patient states this is typical of his pain crises. Patient was recently evaluated in this emergency department for similar type presentation with chest pain and had a negative work-up including VQ scan. Patient denies any acute shortness of breath at this time. - Related Data Previous Rx's Medication Instructions Recorded Last Taken Type Folic Acid [Folvite] 1 mg PO QDAY #30 tablet 07/15/18 Unknown Rx Oxycodone HCl [Roxicodone TAB] 15 mg PO Q6H PRN #12 tablet 07/15/18 Unknown Rx oxyCODONE /ACETAMINOPHEN [Percocet 1 tab PO Q6HR PRN #15 tablet 09/01/19 Unknown Rx 5/325] Allergies Allergy/AdvReac Type Severity Reaction Status Date / Time amoxicillin [From Augmentin] Allergy Hives Verified 03/14/18 10:11 cefprozil [From Cefzil] Allergy Hives Verified 03/14/18 10:11 clavulanic acid Allergy Hives Verified 03/14/18 10:11 [From Augmentin] morphine Allergy Hives Verified 07/13/18 22:11 promethazine [From Phenergan] Allergy Hives Verified 03/14/18 10:11 ED Review of Systems ROS: Stated complaint: SICKLE CELL CRISIS Other details as noted in HPI Constitutional: denies: chills, fever Eyes: denies: eye pain, eye discharge, vision change ENT: denies: ear pain, throat pain Respiratory: denies: cough, shortness of breath, wheezing Cardiovascular: chest pain Endocrine: no symptoms reported Gastrointestinal: denies: abdominal pain, nausea, diarrhea Genitourinary: denies: urgency, dysuria Musculoskeletal: arthralgia Skin: denies: rash, lesions Neurological: denies: headache, weakness, paresthesias Psychiatric: denies: anxiety, depression Hematological/Lymphatic: denies: easy bleeding, easy bruising ED Past Medical Hx - Past Medical History Hx Congestive Heart Failure: No Hx Diabetes: No Hx Sickle Cell Disease: Yes Hx Asthma: No Hx COPD: No Hx HIV: No Additional medical history: Pneumonia - Surgical History Additional Surgical History: RT Knee, Broncossopy - Social History Smoking Status: Never Smoker Substance Use Type: None - Medications Home Medications: Home Medications Medication Instructions Recorded Confirmed Last Taken Type Folic Acid [Folvite] 1 mg PO QDAY #30 tablet 07/15/18 Unknown Rx Oxycodone HCl [Roxicodone TAB] 15 mg PO Q6H PRN #12 tablet 07/15/18 Unknown Rx oxyCODONE /ACETAMINOPHEN [Percocet 1 tab PO Q6HR PRN #15 tablet 09/01/19 Unknown Rx 5/325] ED Physical Exam - General Limitations: No Limitations General appearance: alert, in no apparent distress, other (mildly uncomfortable) - Head Head exam: Present: atraumatic, normocephalic - Eye Eye exam: Present: normal appearance - ENT ENT exam: Present: mucous membranes dry - Neck Neck exam: Present: normal inspection - Respiratory Respiratory exam: Present: normal lung sounds bilaterally. Absent: respiratory distress - Cardiovascular Cardiovascular Exam: Present: regular rate, normal rhythm. Absent: systolic murmur, diastolic murmur, rubs, gallop - GI/Abdominal GI/Abdominal exam: Present: soft, normal bowel sounds - Rectal Rectal exam: Present: deferred - Extremities Exam Extremities exam: Present: normal inspection - Back Exam Back exam: Present: normal inspection - Neurological Exam Neurological exam: Present: alert, oriented X3 - Psychiatric Psychiatric exam: Present: normal affect, normal mood - Skin Skin exam: Present: warm, dry, intact, normal color. Absent: rash ED Course Vital Signs 09/01/19 09/01/19 12:09 17:07 Temperature 98.3 F Pulse Rate 86 79 Respiratory 19 16 Rate Blood Pressure 127/66 Blood Pressure 119/58 [Left] O2 Sat by Pulse 99 100 Oximetry ED Medical Decision Making - Lab Data Result diagrams: 09/01/19 12:32 09/01/19 12:32 - EKG Data EKG shows normal: sinus rhythm Rate: normal - EKG Data Interpretation: no acute changes - Medical Decision Making Patient received three rounds of 2 mg of Dilaudid IV and IV fluids while in the emergency department. Patient has had mild improvement. Patient be discharged to follow-up with big data solutions architect as an outpatient. - Differential Diagnosis STEMI; Acute Chest Syndrome; Dehydration; Anemia; Critical care attestation.: If time is entered above; I have spent that time in minutes in the direct care of this critically ill patient, excluding procedure time. ED Disposition Clinical Impression: Sickle cell crisis, Chest pain Disposition: TO HOME OR SELFCARE Is pt being admited?: No Does the pt Need Aspirin: No Condition: Stable Instructions: Chest Pain (ED), Sickle Cell Crisis (ED) Prescriptions: oxyCODONE /ACETAMINOPHEN [Percocet 5/325] 1 tab PO Q6HR PRN #15 tablet PRN Reason: Pain Referrals: PRIMARY CARE, [Primary Care Provider] - 3-5 Days EDGAR TONEY DO [Staff Physician] - 3-5 Days Time of Disposition: 17:38 Print Language: [place] ISLAND[place] }
[2019-09-01] MEDS ORDERED: diphenhydrAMINE 50 MG/ML VIAL IV ONE (14:50)
[2019-09-01] MEDS ORDERED: HYDROmorphone 2 MG/1 ML INJ IV ONE ×3 (14:50→17:01)
[2019-09-01] MEDS ORDERED: KETOROLAC 30 MG/1 ML INJ IV ONE (14:50)
[2019-09-01] MEDS ORDERED: SODIUM CHLORIDE 0.9% 1000 ML 1,000 ML IV ONE (14:50)
[2019-09-01] MEDS ORDERED: ONDANSETRON 4 MG/2 ML INJ IV ONE (14:52)
[2019-09-01 17:10] VITALS: BP 119/58
== END 2019-09-01 18:06 | disposition home or self-care (01) ==
LOC: ED 10:39
DX: D57.00 Hb-SS disease with crisis, unspecified (principal); R07.9 Chest pain, unspecified; Z88.0 Allergy status to penicillin; Z88.1 Allergy status to other antibiotic agents; Z88.6 Allergy status to analgesic agent; Z88.8 Allergy status to other drugs, medicaments and biological substances; Z79.899 Other long term (current) drug therapy; Z98.890 Other specified postprocedural states
CPT/HCPCS: 36415; 71046; 80053; 84484; 85025; 85045; 93005; 93010; 96361; 96374; 96375; 96376; 99285; J1170; J1200; J1885; J2405; J7030

== ENCOUNTER 2019-10-14 02:26 | Emergency (ER) | payer MEDICAID ==
[2019-10-14 02:53] LABS: Hematocrit 37.2 % (35.5-45.6); Hemoglobin 12.6 gm/dl (11.8-15.2); Mean Corpuscular HGB Conc 34 % (32-34); Mean Corpuscular Volume 72 fl (84-94); Platelet Count 269 K/mm3 (140-440); Red Blood Count 5.19 M/mm3 (3.65-5.03); Red Cell Distribution Width 19.2 % (13.2-15.2)
[2019-10-14 03:11] LABS: BUN/Creatinine Ratio 11; Blood Urea Nitrogen 8 mg/dL (9-20); Calcium 9.6 mg/dL (8.4-10.2); Hemolysis Index 8
[2019-10-14 04:30] LABS: Basophils % (Manual) 0 % (0.0-1.8); Total Cells Counted 100
[2019-10-14 04:32] LABS: Platelet Estimate Consistent w Auto; Schistocytes Rare; Target Cells 2+
[2019-10-14 05:33] VITALS: BP 120/66
== END 2019-10-14 03:10 | disposition left against medical advice (07) ==
LOC: ED 02:26
DX: D57.00 Hb-SS disease with crisis, unspecified (principal); Z53.21 Procedure and treatment not carried out due to patient leaving prior to being seen by health care provider
CPT/HCPCS: 36415; 80048; 84484; 85007; 85025; 85045; 93005; 93010

== ENCOUNTER 2020-06-07 19:18 | Emergency (ER) | payer MEDICAID ==
[2020-06-07 19:27] VITALS: BP 110/59
--- NOTE | 2020-06-07 20:16 | Event Note ---
ED Screening Note Date of service: 06/07/20 Time: 20:15 ED Screening Note: Patient complains of sickle cell pain x3 days This initial assessment/diagnostic orders/clinical plan/treatment(s) is/are subject to change based on patients health status, clinical progression and re- assessment by fellow clinical providers in the ED. Further treatment and workup at subsequent clinical providers discretion. Patient/guardian urged not to elope from the ED as their condition may be serious if not clinically assessed and managed. Initial orders include: Lab
== END 2020-06-07 22:00 | disposition other institution (70) ==
LOC: ED 19:18
DX: R69 Illness, unspecified (principal); Z53.21 Procedure and treatment not carried out due to patient leaving prior to being seen by health care provider